=== PATIENT | male | born 1975 | race African-American/Black ===

== ENCOUNTER 2018-10-12 10:40 | Emergency (ER) | payer SELFPAY ==
[~2018-10-12] VITALS: Ht 175.3 cm; Wt 69.1 kg
[2018-10-12 11:00] VITALS: BP 120/95
[2018-10-12 15:35] LABS: BASOPHILS % (AUTO) 0.3 % (0.0-2.0); EOSINOPHILS % (AUTO) 1.4 % (1.0-6.0); HEMATOCRIT 41.6 % (41-53); HEMOGLOBIN 13.6 g/dL (13.5-17.5); LYMPHOCYTES # (AUTO) 2.1 K/uL (1.0-4.8); MEAN CORPUSCULAR HEMOGLOBIN 25.2 pg (26.0-34.0); MEAN CORPUSCULAR HGB CONC 32.6 G/dL (31.0-37.0); MEAN CORPUSCULAR VOLUME 77 fL (80-100); MONOCYTES # (AUTO) 0.5 K/uL (0.1-1.0); MONOCYTES % (AUTO) 7.7 % (2.0-9.0); NEUTROPHILS # (AUTO) 3.5 K/uL (1.8-7.7); NEUTROPHILS % (AUTO) 56.6 % (40.0-70.0); PLATELET COUNT (AUTO) 314 K/uL (150-450); RED BLOOD CELL COUNT(AUTO) 5.37 MIL/uL (4.50-5.90); RED CELL DISTRIBUTION WIDTH 14.6 % (11.5-14.5)
[2018-10-12 15:50] LABS: ANION GAP 12 mmol/L (8-16); CALCIUM, TOTAL 9.3 mg/dL (8.8-10.5); CARBON DIOXIDE 25 mmol/L (22-29); CHLORIDE 102 mmol/L (98-107); CREATININE 1.02 mg/dL (0.60-1.30); GLOMERULAR FILTR. RATE CALC > 60 mL/min (>60); GLUCOSE,RANDOM 123 mg/dL (70-110); POTASSIUM 3.6 mmol/L (3.5-5.1); SODIUM SERUM 139 mmol/L (136-145); UREA NITROGEN, BLOOD 10 mg/dL (7-18)
[2018-10-12 15:57] LABS: ALANINE AMINOTRANSFERASE 55 U/L (12-78); ALBUMIN 3.5 g/dL (3.4-5.0); ALKALINE PHOSPHATASE 97 U/L (46-116); ASPARTATE AMINOTRANSFERASE 28 U/L (15-37); BILIRUBIN,TOTAL 0.5 mg/dL (0.1-1.0); TOTAL PROTEIN, SERUM 8.2 g/dL (6.4-8.2)
== END 2018-10-12 16:16 | disposition left against medical advice (07) ==
LOC: EMS 10:42
DX: F20.9 Schizophrenia, unspecified (principal); R45.851 Suicidal ideations
CPT/HCPCS: 80053; 85025; 99284; G0480

== ENCOUNTER 2019-08-01 14:21 | Emergency (ER) | payer SELFPAY ==
[~2019-08-01] VITALS: Ht 172.7 cm; Wt 79.5 kg
[2019-08-01 14:25] VITALS: BP 126/77
[2019-08-01 16:52] LABS: BASOPHILS % (AUTO) 0.5 % (0.0-2.0); EOSINOPHILS % (AUTO) 3.8 % (1.0-6.0); HEMATOCRIT 39.3 % (41-53); HEMOGLOBIN 12.5 g/dL (13.5-17.5); LYMPHOCYTES % (AUTO) 32.3 % (22.0-44.0); MEAN CORPUSCULAR HEMOGLOBIN 25.3 pg (26.0-34.0); MEAN CORPUSCULAR HGB CONC 31.7 G/dL (31.0-37.0); MEAN CORPUSCULAR VOLUME 80 fL (80-100); MONOCYTES # (AUTO) 0.5 K/uL (0.1-1.0); MONOCYTES % (AUTO) 8.4 % (2.0-9.0); NEUTROPHILS # (AUTO) 3.3 K/uL (1.8-7.7); PLATELET COUNT (AUTO) 327 K/uL (150-450); RED BLOOD CELL COUNT(AUTO) 4.92 MIL/uL (4.50-5.90)
[2019-08-01 17:02] LABS: ANION GAP 5 mmol/L (8-16); CALCIUM, TOTAL 8.9 mg/dL (8.8-10.5); CARBON DIOXIDE 30 mmol/L (22-29); CHLORIDE 105 mmol/L (98-107); CREATININE 0.67 mg/dL (0.60-1.30); GLOMERULAR FILTR. RATE CALC > 60 mL/min (>60); GLUCOSE,RANDOM 116 mg/dL (70-110); SODIUM SERUM 140 mmol/L (136-145); UREA NITROGEN, BLOOD 9 mg/dL (7-18)
[2019-08-01 17:09] LABS: ALANINE AMINOTRANSFERASE 51 U/L (12-78); ALBUMIN 3.5 g/dL (3.4-5.0); ALKALINE PHOSPHATASE 85 U/L (46-116); ASPARTATE AMINOTRANSFERASE 50 U/L (15-37); BILIRUBIN,TOTAL 0.4 mg/dL (0.1-1.0); TOTAL PROTEIN, SERUM 7.6 g/dL (6.4-8.2)
[2019-08-01 20:28] LABS: AMPHET/METH SCREEN,URINE POSITIVE (NEGATIVE); BARBITURATE SCREEN, URINE NEGATIVE (NEGATIVE); BENZODIAZEPINES SCREEN,URINE NEGATIVE (NEGATIVE); CANNABINOID SCREEN,URINE NEGATIVE (NEGATIVE); COCAINE SCREEN,URINE NEGATIVE (NEGATIVE); METHADONE SCREEN, URINE NEGATIVE (NEGATIVE); OPIATE SCREEN,URINE NEGATIVE (NEGATIVE)
[2019-08-01 20:36] LABS: PHENCYCLIDINE SCREEN,URINE NEGATIVE (NEGATIVE)
[2019-08-01] MEDS ORDERED: HALOPERIDOL 5 MG TABLET PO ONE (21:00)
[2019-08-01] MEDS ORDERED: DiphenhydrAMINE HCL 25 MG CAPSULE PO ONE (21:00)
== END 2019-08-01 21:15 | disposition home or self-care (01) ==
LOC: EMS 14:22
DX: F20.9 Schizophrenia, unspecified (principal); F17.210 Nicotine dependence, cigarettes, uncomplicated; F12.90 Cannabis use, unspecified, uncomplicated; F19.90 Other psychoactive substance use, unspecified, uncomplicated
CPT/HCPCS: 36415; 80053; 80307; 85025; 99284; G0480

== ENCOUNTER 2019-08-13 15:37 | Emergency (ER) | payer MEDICAID ==
[~2019-08-13] VITALS: Ht 172.7 cm; Wt 70.5 kg
[2019-08-13 16:14] LABS: AMPHET/METH SCREEN,URINE NEGATIVE (NEGATIVE); BARBITURATE SCREEN, URINE NEGATIVE (NEGATIVE); BENZODIAZEPINES SCREEN,URINE NEGATIVE (NEGATIVE); CANNABINOID SCREEN,URINE POSITIVE (NEGATIVE); COCAINE SCREEN,URINE NEGATIVE (NEGATIVE); METHADONE SCREEN, URINE NEGATIVE (NEGATIVE); OPIATE SCREEN,URINE NEGATIVE (NEGATIVE)
[2019-08-13 16:16] LABS: BASOPHILS % (AUTO) 0.5 % (0.0-2.0); EOSINOPHILS % (AUTO) 3.3 % (1.0-6.0); HEMATOCRIT 41.5 % (41-53); HEMOGLOBIN 13.4 g/dL (13.5-17.5); LYMPHOCYTES % (AUTO) 29.9 % (22.0-44.0); MEAN CORPUSCULAR HEMOGLOBIN 25.8 pg (26.0-34.0); MEAN CORPUSCULAR HGB CONC 32.3 G/dL (31.0-37.0); MEAN CORPUSCULAR VOLUME 80 fL (80-100); MONOCYTES # (AUTO) 0.4 K/uL (0.1-1.0); MONOCYTES % (AUTO) 6.5 % (2.0-9.0); NEUTROPHILS % (AUTO) 59.8 % (40.0-70.0); PLATELET COUNT (AUTO) 348 K/uL (150-450); RED CELL DISTRIBUTION WIDTH 15.3 % (11.5-14.5)
[2019-08-13 16:18] LABS: PHENCYCLIDINE SCREEN,URINE NEGATIVE (NEGATIVE)
[2019-08-13 17:01] LABS: ANION GAP 9 mmol/L (8-16); CALCIUM, TOTAL 9.3 mg/dL (8.8-10.5); CARBON DIOXIDE 25 mmol/L (22-29); CHLORIDE 105 mmol/L (98-107); CREATININE 0.78 mg/dL (0.60-1.30); GLOMERULAR FILTR. RATE CALC > 60 mL/min (>60); GLUCOSE,RANDOM 117 mg/dL (70-110); POTASSIUM 3.8 mmol/L (3.5-5.1); SODIUM SERUM 139 mmol/L (136-145); UREA NITROGEN, BLOOD 16 mg/dL (7-18)
[2019-08-13 17:07] LABS: ALANINE AMINOTRANSFERASE 40 U/L (12-78); ALBUMIN 3.5 g/dL (3.4-5.0); ALKALINE PHOSPHATASE 101 U/L (46-116); ASPARTATE AMINOTRANSFERASE 18 U/L (15-37); BILIRUBIN,TOTAL 0.3 mg/dL (0.1-1.0); TOTAL PROTEIN, SERUM 7.9 g/dL (6.4-8.2)
[2019-08-13 18:31] VITALS: BP 133/85
== END 2019-08-13 19:26 | disposition home or self-care (01) ==
LOC: EMS 15:38
DX: R51 Headache (principal); F31.9 Bipolar disorder, unspecified; F20.9 Schizophrenia, unspecified; F17.210 Nicotine dependence, cigarettes, uncomplicated; F12.90 Cannabis use, unspecified, uncomplicated; F19.90 Other psychoactive substance use, unspecified, uncomplicated
CPT/HCPCS: 36415; 70450; 80053; 80307; 85025; 99284; G0480

== ENCOUNTER 2019-08-15 00:28 | Inpatient (IN) | payer MEDICAID ==
[~2019-08-15] VITALS: Ht 172.7 cm; Wt 75.5 kg
[2019-08-15 01:19] LABS: BASOPHILS % (AUTO) 0.8 % (0.0-2.0); EOSINOPHILS % (AUTO) 0.5 % (1.0-6.0); LYMPHOCYTES # (AUTO) 2.2 K/uL (1.0-4.8); LYMPHOCYTES % (AUTO) 26.3 % (22.0-44.0); MEAN CORPUSCULAR HEMOGLOBIN 25.7 pg (26.0-34.0); MEAN CORPUSCULAR HGB CONC 32.5 G/dL (31.0-37.0); MEAN CORPUSCULAR VOLUME 79 fL (80-100); MONOCYTES # (AUTO) 0.4 K/uL (0.1-1.0); MONOCYTES % (AUTO) 4.5 % (2.0-9.0); NEUTROPHILS # (AUTO) 5.7 K/uL (1.8-7.7); NEUTROPHILS % (AUTO) 67.9 % (40.0-70.0); PLATELET COUNT (AUTO) 332 K/uL (150-450); RED BLOOD CELL COUNT(AUTO) 5.05 MIL/uL (4.50-5.90); RED CELL DISTRIBUTION WIDTH 14.8 % (11.5-14.5)
[2019-08-15 01:25] LABS: AMPHET/METH SCREEN,URINE POSITIVE (NEGATIVE); BARBITURATE SCREEN, URINE NEGATIVE (NEGATIVE); BENZODIAZEPINES SCREEN,URINE NEGATIVE (NEGATIVE); CANNABINOID SCREEN,URINE NEGATIVE (NEGATIVE); COCAINE SCREEN,URINE NEGATIVE (NEGATIVE); METHADONE SCREEN, URINE NEGATIVE (NEGATIVE); OPIATE SCREEN,URINE NEGATIVE (NEGATIVE)
[2019-08-15 01:26] LABS: PHENCYCLIDINE SCREEN,URINE NEGATIVE (NEGATIVE)
[2019-08-15 01:32] LABS: ALANINE AMINOTRANSFERASE 36 U/L (12-78); ALBUMIN 3.5 g/dL (3.4-5.0); ALKALINE PHOSPHATASE 99 U/L (46-116); ANION GAP 7 mmol/L (8-16); ASPARTATE AMINOTRANSFERASE 19 U/L (15-37); BILIRUBIN,TOTAL 0.4 mg/dL (0.1-1.0); CARBON DIOXIDE 27 mmol/L (22-29); CHLORIDE 104 mmol/L (98-107); GLOMERULAR FILTR. RATE CALC > 60 mL/min (>60); GLUCOSE,RANDOM 105 mg/dL (70-110); POTASSIUM 3.7 mmol/L (3.5-5.1); SODIUM SERUM 138 mmol/L (136-145); TOTAL PROTEIN, SERUM 7.7 g/dL (6.4-8.2); UREA NITROGEN, BLOOD 15 mg/dL (7-18)
[2019-08-15] MEDS ORDERED: ZOLPIDEM TARTRATE 10 MG TABLET PO PRN (05:30)
[2019-08-15 05:46] LABS: INFLUENZA TYPE A NEGATIVE FOR TYPE A (NEGATIVE); INFLUENZA TYPE B NEGATIVE FOR TYPE B (NEGATIVE)
[2019-08-15 06:30] VITALS: BP 142/91
[2019-08-15] MEDS ORDERED: INFLUENZA VIRUS VACCINE QVS 2019-20 (3YR+)/PF 60 MCG/0.5 ML SYRINGE IM ONE (07:15)
[2019-08-15] MEDS ORDERED: PNEUMOCOCCAL VACCINE POLYVALENT 0.5 ML VIAL [PPSV23] IM ONE (07:15)
[2019-08-15 08:30] VITALS: BP 130/91
[2019-08-15] MEDS: OLANZapine 5 MG TABLET PO SCH ×2 (10:55→16:30)
[2019-08-15] MEDS: SERTRALINE HCL 50 MG TABLET PO SCH (10:56)
[2019-08-15 17:38] VITALS: BP 117/79
[2019-08-16 06:59] LABS: CHOL/HDL RATIO 3.6 (4.2-7.3)
[2019-08-16] MEDS: OLANZapine 5 MG TABLET PO SCH ×2 (08:33→16:15)
[2019-08-16] MEDS: SERTRALINE HCL 50 MG TABLET PO SCH (08:34)
[2019-08-16 08:44] VITALS: BP 123/77
[2019-08-16 17:36] VITALS: BP 125/72
[2019-08-17 03:56] VITALS: BP 120/70
[2019-08-17 08:55] VITALS: BP 113/85
[2019-08-17] MEDS: OLANZapine 5 MG TABLET PO SCH ×2 (09:18→16:27)
[2019-08-17] MEDS: SERTRALINE HCL 50 MG TABLET PO SCH (09:24)
[2019-08-17 17:50] VITALS: BP 103/66
[2019-08-18 08:00] VITALS: BP 116/76
[2019-08-18] MEDS: SERTRALINE HCL 50 MG TABLET PO SCH (09:20)
[2019-08-18] MEDS: OLANZapine 5 MG TABLET PO SCH ×2 (09:20→16:05)
[2019-08-18 19:50] VITALS: BP 117/50
[2019-08-19 01:20] VITALS: BP 115/77
[2019-08-19] MEDS: SERTRALINE HCL 50 MG TABLET PO SCH (08:44)
[2019-08-19] MEDS: OLANZapine 5 MG TABLET PO SCH ×2 (08:44→16:30)
[2019-08-19 09:27] VITALS: BP 109/74
[2019-08-19 19:30] VITALS: BP 130/74
[2019-08-20 04:29] VITALS: BP 130/78
[2019-08-20] MEDS: OLANZapine 5 MG TABLET PO SCH (08:45)
[2019-08-20] MEDS: SERTRALINE HCL 50 MG TABLET PO SCH (08:46)
[2019-08-20 09:45] VITALS: BP 122/74
[2019-08-20] MEDS ORDERED: SERTRALINE HCL 50 MG TABLET PO ONE (11:00)
[2019-08-20] MEDS: OLANZapine 7.5 MG TABLET PO SCH (16:38)
[2019-08-20 21:39] VITALS: BP 117/73
[2019-08-21] MEDS: SERTRALINE HCL 50 MG TABLET PO SCH (08:46)
[2019-08-21] MEDS: OLANZapine 7.5 MG TABLET PO SCH ×2 (08:46→16:11)
[2019-08-21 09:53] VITALS: BP 107/72
[2019-08-21 17:00] VITALS: BP 111/62
[2019-08-22] MEDS: OLANZapine 7.5 MG TABLET PO SCH ×2 (08:32→16:24)
[2019-08-22] MEDS: SERTRALINE HCL 50 MG TABLET PO SCH (08:32)
[2019-08-22 08:53] VITALS: BP 132/83
[2019-08-22 20:14] VITALS: BP 122/78
[2019-08-23] MEDS: SERTRALINE HCL 50 MG TABLET PO SCH (08:24)
[2019-08-23] MEDS: OLANZapine 7.5 MG TABLET PO SCH ×2 (08:24→16:07)
[2019-08-23] MEDS: MULTIVITAMINS WITH MINERALS, THERAPEUTIC TABLET PO SCH (08:24)
[2019-08-23 08:44] VITALS: BP 114/73
[2019-08-23 17:00] VITALS: BP 118/76
[2019-08-24] MEDS: SERTRALINE HCL 50 MG TABLET PO SCH (08:04)
[2019-08-24] MEDS: OLANZapine 7.5 MG TABLET PO SCH (08:04)
[2019-08-24] MEDS: MULTIVITAMINS WITH MINERALS, THERAPEUTIC TABLET PO SCH (08:04)
[2019-08-24 08:14] VITALS: BP 101/66
[2019-08-24] MEDS ORDERED: OLAN7.5T9 PO (08:33)
[2019-08-24] MEDS ORDERED: SERT25TA PO (08:35)
[2019-08-24] MEDS: OLANZapine 10 MG TABLET PO SCH (16:16)
[2019-08-24 16:26] VITALS: BP 117/74
[2019-08-25 08:00] VITALS: BP 132/79
[2019-08-25] MEDS: OLANZapine 10 MG TABLET PO SCH ×2 (08:31→16:20)
[2019-08-25] MEDS: MULTIVITAMINS WITH MINERALS, THERAPEUTIC TABLET PO SCH (08:31)
[2019-08-25] MEDS: SERTRALINE HCL 50 MG TABLET PO SCH (08:33)
[2019-08-25 17:35] VITALS: BP 118/71
[2019-08-26 08:45] VITALS: BP 125/68
[2019-08-26] MEDS: SERTRALINE HCL 50 MG TABLET PO SCH (08:46)
[2019-08-26] MEDS: MULTIVITAMINS WITH MINERALS, THERAPEUTIC TABLET PO SCH (08:46)
[2019-08-26] MEDS: OLANZapine 10 MG TABLET PO SCH ×2 (08:46→16:22)
[2019-08-26 17:09] VITALS: BP 121/62
[2019-08-27 08:18] VITALS: BP 126/77
[2019-08-27] MEDS: HALOPERIDOL 5 MG TABLET PO PRN ×2 (08:41→16:07)
[2019-08-27] MEDS: LORazepam 2 MG TABLET PO PRN ×2 (08:41→16:07)
[2019-08-27] MEDS: MULTIVITAMINS WITH MINERALS, THERAPEUTIC TABLET PO SCH (08:42)
[2019-08-27] MEDS: SERTRALINE HCL 50 MG TABLET PO SCH (08:42)
[2019-08-27] MEDS: OLANZapine 10 MG TABLET PO SCH ×2 (08:42→16:06)
[2019-08-27 17:31] VITALS: BP 104/85
[2019-08-28] MEDS: MULTIVITAMINS WITH MINERALS, THERAPEUTIC TABLET PO SCH (08:20)
[2019-08-28] MEDS: SERTRALINE HCL 50 MG TABLET PO SCH (08:20)
[2019-08-28] MEDS: OLANZapine 10 MG TABLET PO SCH ×2 (08:20→16:06)
[2019-08-28 08:34] VITALS: BP 105/84
[2019-08-28 16:00] VITALS: BP 130/76
[2019-08-28 16:30] VITALS: BP 130/76
[2019-08-29] MEDS: MULTIVITAMINS WITH MINERALS, THERAPEUTIC TABLET PO SCH (08:26)
[2019-08-29] MEDS: SERTRALINE HCL 50 MG TABLET PO SCH (08:26)
[2019-08-29] MEDS: OLANZapine 10 MG TABLET PO SCH ×2 (08:27→16:17)
[2019-08-29 08:53] VITALS: BP 125/87
[2019-08-29 17:14] VITALS: BP 130/77
[2019-08-30 08:19] VITALS: BP 127/67
[2019-08-30] MEDS: OLANZapine 10 MG TABLET PO SCH ×2 (09:14→16:32)
[2019-08-30] MEDS: MULTIVITAMINS WITH MINERALS, THERAPEUTIC TABLET PO SCH (09:14)
[2019-08-30] MEDS: SERTRALINE HCL 50 MG TABLET PO SCH (09:14)
[2019-08-30 16:55] VITALS: BP 133/67
[2019-08-31 08:00] VITALS: BP 132/68
[2019-08-31] MEDS: SERTRALINE HCL 50 MG TABLET PO SCH (09:03)
[2019-08-31] MEDS: MULTIVITAMINS WITH MINERALS, THERAPEUTIC TABLET PO SCH (09:03)
[2019-08-31] MEDS: OLANZapine 10 MG TABLET PO SCH ×2 (09:03→16:28)
[2019-08-31 17:25] VITALS: BP 112/66
[2019-09-01] MEDS: SERTRALINE HCL 50 MG TABLET PO SCH (08:45)
[2019-09-01] MEDS: OLANZapine 10 MG TABLET PO SCH (08:45)
[2019-09-01] MEDS: MULTIVITAMINS WITH MINERALS, THERAPEUTIC TABLET PO SCH (08:45)
[2019-09-01 09:04] VITALS: BP 128/68
[2019-09-01] MEDS ORDERED: OLAN10TA3 PO (12:15)
[2019-09-01] MEDS ORDERED: SERT50TA12 PO (12:15)
[2019-09-01] MEDS: DIVALPROEX SODIUM 500 MG DR TABLET PO SCH (16:18)
[2019-09-01] MEDS: OLANZapine 7.5 MG TABLET PO SCH (16:18)
[2019-09-01 17:12] VITALS: BP 129/73
[2019-09-02] MEDS: OLANZapine 7.5 MG TABLET PO SCH ×2 (08:51→16:23)
[2019-09-02] MEDS: MULTIVITAMINS WITH MINERALS, THERAPEUTIC TABLET PO SCH (08:51)
[2019-09-02] MEDS: SERTRALINE HCL 50 MG TABLET PO SCH (08:51)
[2019-09-02] MEDS: DIVALPROEX SODIUM 500 MG DR TABLET PO SCH ×2 (08:51→16:22)
[2019-09-02 10:04] VITALS: BP 118/63
[2019-09-02 17:00] VITALS: BP 116/66
[2019-09-03 08:53] VITALS: BP 120/66
[2019-09-03] MEDS: SERTRALINE HCL 50 MG TABLET PO SCH (08:59)
[2019-09-03] MEDS: DIVALPROEX SODIUM 500 MG DR TABLET PO SCH ×2 (08:59→15:57)
[2019-09-03] MEDS: MULTIVITAMINS WITH MINERALS, THERAPEUTIC TABLET PO SCH (08:59)
[2019-09-03] MEDS: OLANZapine 7.5 MG TABLET PO SCH ×2 (08:59→15:57)
[2019-09-03 16:49] VITALS: BP 120/71
[2019-09-04 08:53] VITALS: BP 120/75
[2019-09-04] MEDS: DIVALPROEX SODIUM 500 MG DR TABLET PO SCH ×2 (10:45→17:09)
[2019-09-04] MEDS: SERTRALINE HCL 50 MG TABLET PO SCH (10:45)
[2019-09-04] MEDS: OLANZapine 7.5 MG TABLET PO SCH ×2 (10:46→17:10)
[2019-09-04] MEDS: MULTIVITAMINS WITH MINERALS, THERAPEUTIC TABLET PO SCH (10:46)
[2019-09-04 17:07] VITALS: BP 130/71
[2019-09-04] MEDS ORDERED: DIVA-78 PO (17:50)
[2019-09-04] MEDS ORDERED: OLAN7.5T2 PO (17:50)
== END 2019-09-04 18:45 | disposition left against medical advice (07) | DRG 750 ==
LOC: EMS 00:30 → 3EI 05:00
PROVIDERS: ADMIT Psychiatry & Neurology Child & Adolescent Psychiatry; ATTEND Psychiatry & Neurology Child & Adolescent Psychiatry
DX: F25.1 Schizoaffective disorder, depressive type (principal); Z59.0 Homelessness; D64.9 Anemia, unspecified; F10.10 Alcohol abuse, uncomplicated; F15.10 Other stimulant abuse, uncomplicated; F17.210 Nicotine dependence, cigarettes, uncomplicated; K21.9 Gastro-esophageal reflux disease without esophagitis; Z53.29 Procedure and treatment not carried out because of patient's decision for other reasons; R00.0 Tachycardia, unspecified; R09.81 Nasal congestion; R10.13 Epigastric pain; Z28.21 Immunization not carried out because of patient refusal; Z71.41 Alcohol abuse counseling and surveillance of alcoholic; Z71.51 Drug abuse counseling and surveillance of drug abuser
CPT/HCPCS: 87804; G0480

== ENCOUNTER 2019-09-29 17:18 | Emergency (ER) | payer MEDICAID, OTHER ==
[~2019-09-29] VITALS: Ht 172.7 cm; Wt 77.3 kg
[~2019-09-29 17:18] MED LIST: DIVA-78 PO; OLAN7.5T2 PO; SERT50TA12 PO
[2019-09-29 17:24] VITALS: BP 142/81
== END 2019-09-29 19:30 | disposition left against medical advice (07) ==
LOC: EMS 17:19
DX: R53.83 Other fatigue (principal); Z53.21 Procedure and treatment not carried out due to patient leaving prior to being seen by health care provider

== ENCOUNTER 2019-10-02 09:11 | Inpatient (IN) | payer MEDICAID, OTHER ==
[~2019-10-02] VITALS: Ht 172.7 cm; Wt 76.9 kg
[2019-10-02 13:10] LABS: BASOPHILS % (AUTO) 0.7 % (0.0-2.0); EOSINOPHILS % (AUTO) 6.8 % (1.0-6.0); HEMATOCRIT 39.9 % (41-53); HEMOGLOBIN 12.8 g/dL (13.5-17.5); LYMPHOCYTES # (AUTO) 2.4 K/uL (1.0-4.8); LYMPHOCYTES % (AUTO) 53.5 % (22.0-44.0); MEAN CORPUSCULAR HEMOGLOBIN 25.4 pg (26.0-34.0); MEAN CORPUSCULAR HGB CONC 32.2 G/dL (31.0-37.0); MEAN CORPUSCULAR VOLUME 79 fL (80-100); MONOCYTES # (AUTO) 0.4 K/uL (0.1-1.0); NEUTROPHILS # (AUTO) 1.3 K/uL (1.8-7.7); PLATELET COUNT (AUTO) 271 K/uL (150-450); RED BLOOD CELL COUNT(AUTO) 5.05 MIL/uL (4.50-5.90); RED CELL DISTRIBUTION WIDTH 14.4 % (11.5-14.5)
[2019-10-02 13:21] LABS: ANION GAP 6 mmol/L (8-16); CALCIUM, TOTAL 9.1 mg/dL (8.8-10.5); CARBON DIOXIDE 28 mmol/L (22-29); CHLORIDE 105 mmol/L (98-107); CREATININE 0.71 mg/dL (0.60-1.30); GLOMERULAR FILTR. RATE CALC > 60 mL/min (>60); GLUCOSE,RANDOM 77 mg/dL (70-110); POTASSIUM 3.6 mmol/L (3.5-5.1); SODIUM SERUM 139 mmol/L (136-145); UREA NITROGEN, BLOOD 7 mg/dL (7-18)
[2019-10-02 13:26] LABS: ALANINE AMINOTRANSFERASE 39 U/L (12-78); ALBUMIN 3.4 g/dL (3.4-5.0); ALKALINE PHOSPHATASE 96 U/L (46-116); ASPARTATE AMINOTRANSFERASE 21 U/L (15-37); BILIRUBIN,TOTAL 0.3 mg/dL (0.1-1.0); LIPASE 628 U/L (73-393); TOTAL PROTEIN, SERUM 7.7 g/dL (6.4-8.2)
[2019-10-02 13:34] LABS: APPEARANCE,URINE CLEAR (CLEAR); BILIRUBIN,URINE NEGATIVE (NEGATIVE); GLUCOSE, URINE (UA) NEGATIVE (NEGATIVE); KETONES,URINE NEGATIVE (NEGATIVE); LEUKOCYTE ESTERASE ,URINE NEGATIVE (NEGATIVE); NITRATE,URINE NEGATIVE (NEGATIVE); OCCULT BLOOD,URINE NEGATIVE (NEGATIVE); PH,URINE 6.5 (5.0-8.0); PROTEIN,URINE NEGATIVE (NEGATIVE); UROBILINOGEN,URINE 0.2 mg/dL (<=1.0)
[2019-10-02 13:39] LABS: AMPHET/METH SCREEN,URINE NEGATIVE (NEGATIVE); BARBITURATE SCREEN, URINE NEGATIVE (NEGATIVE); BENZODIAZEPINES SCREEN,URINE NEGATIVE (NEGATIVE); CANNABINOID SCREEN,URINE NEGATIVE (NEGATIVE); COCAINE SCREEN,URINE NEGATIVE (NEGATIVE); METHADONE SCREEN, URINE NEGATIVE (NEGATIVE); OPIATE SCREEN,URINE NEGATIVE (NEGATIVE); PHENCYCLIDINE SCREEN,URINE NEGATIVE (NEGATIVE)
[2019-10-02] MEDS ORDERED: LORazepam 2 MG TABLET PO PRN (16:15)
[2019-10-02] MEDS ORDERED: ZOLPIDEM TARTRATE 10 MG TABLET PO PRN (16:15)
[2019-10-02] MEDS ORDERED: MAGNESIUM HYDROXIDE SUSPENSION 30 ML UDCUP PO PRN (18:45)
[2019-10-02] MEDS ORDERED: ONDANSETRON HCL 4 MG TABLET PO PRN (18:45)
[2019-10-02] MEDS ORDERED: LOPERAMIDE HCL 2 MG CAPSULE PO PRN (18:45)
[2019-10-02] MEDS ORDERED: ACETAMINOPHEN 325 MG TABLET PO PRN (18:45)
[2019-10-02] MEDS ORDERED: GuaiFENesin/D-METHORPHAN [SUGAR-FREE] 200-20MG/10 ML SYRUP UDCUP PO PRN (18:45)
[2019-10-02] MEDS ORDERED: CloNIDine HCL 0.1 MG TABLET PO PRN (18:45)
[2019-10-02] MEDS ORDERED: NICOTINE 14 MG/24 HOUR PATCH TD PRN (18:45)
[2019-10-02] MEDS ORDERED: IBUPROFEN 400 MG TABLET PO PRN (18:45)
[2019-10-02] MEDS ORDERED: DOCUSATE SODIUM 100 MG CAPSULE PO PRN (18:45)
[2019-10-02] MEDS ORDERED: ALBUTEROL SULFATE HFA 90 MCG/PUFF 8 GM INHALER IH PRN (18:45)
[2019-10-02] MEDS ORDERED: MAG HYDROX/AL HYDROX/SIMETH ES 30 ML SUSPENSION UDCUP PO PRN (18:45)
[2019-10-02] MEDS ORDERED: PETROLATUM,WHITE 28 GM JELLY TP PRN (18:45)
[2019-10-02] MEDS ORDERED: INFLUENZA VIRUS VACCINE QVS 2019-20 (3YR+)/PF 60 MCG/0.5 ML SYRINGE IM ONE (20:45)
[2019-10-02] MEDS ORDERED: PNEUMOCOCCAL VACCINE POLYVALENT 0.5 ML VIAL [PPSV23] IM ONE (22:00)
[2019-10-02 22:15] VITALS: BP 145/83
[2019-10-03 07:09] VITALS: BP 118/74
[2019-10-03 08:18] VITALS: BP 130/72
[2019-10-03] MEDS: SERTRALINE HCL 100 MG TABLET PO SCH (12:28)
[2019-10-03] MEDS: DIVALPROEX SODIUM 500 MG ER TABLET PO SCH (16:22)
[2019-10-03 17:01] VITALS: BP 114/85
[2019-10-03] MEDS: HALOPERIDOL 5 MG TABLET PO PRN (17:55)
[2019-10-03] MEDS: OLANZapine 10 MG TABLET PO SCH (20:13)
[2019-10-04 00:06] VITALS: BP 129/62
[2019-10-04] MEDS: DIVALPROEX SODIUM 500 MG ER TABLET PO SCH ×2 (08:25→18:26)
[2019-10-04] MEDS: SERTRALINE HCL 100 MG TABLET PO SCH (08:25)
[2019-10-04] MEDS: MULTIVITAMINS WITH MINERALS, THERAPEUTIC TABLET PO SCH (09:07)
[2019-10-04 16:10] VITALS: BP 132/77
[2019-10-04] MEDS: OLANZapine 10 MG TABLET PO SCH (20:35)
[2019-10-05 05:59] VITALS: BP 126/72
[2019-10-05 08:31] VITALS: BP 117/69
[2019-10-05] MEDS: DIVALPROEX SODIUM 500 MG ER TABLET PO SCH ×2 (08:43→16:53)
[2019-10-05] MEDS: MULTIVITAMINS WITH MINERALS, THERAPEUTIC TABLET PO SCH (08:43)
[2019-10-05] MEDS: SERTRALINE HCL 100 MG TABLET PO SCH (08:43)
[2019-10-05 16:13] VITALS: BP 131/76
[2019-10-05] MEDS: OLANZapine 10 MG TABLET PO SCH (20:40)
[2019-10-06 00:09] VITALS: BP 129/62
[2019-10-06 08:27] VITALS: BP 124/80
[2019-10-06] MEDS: SERTRALINE HCL 100 MG TABLET PO SCH (08:41)
[2019-10-06] MEDS: MULTIVITAMINS WITH MINERALS, THERAPEUTIC TABLET PO SCH (08:41)
[2019-10-06] MEDS: DIVALPROEX SODIUM 500 MG ER TABLET PO SCH (08:41)
[2019-10-06 16:12] VITALS: BP 123/82
[2019-10-06] MEDS: DIVALPROEX SODIUM 250 MG ER TABLET PO SCH (16:41)
[2019-10-06] MEDS: OLANZapine 10 MG TABLET PO SCH (20:34)
[2019-10-07 06:18] VITALS: BP 124/63
[2019-10-07 08:17] VITALS: BP 132/78
[2019-10-07] MEDS: DIVALPROEX SODIUM 250 MG ER TABLET PO SCH ×2 (08:19→16:31)
[2019-10-07] MEDS: SERTRALINE HCL 100 MG TABLET PO SCH (08:19)
[2019-10-07] MEDS: MULTIVITAMINS WITH MINERALS, THERAPEUTIC TABLET PO SCH (08:19)
[2019-10-07 16:00] VITALS: BP 134/80
[2019-10-07] MEDS: OLANZapine 10 MG TABLET PO SCH (20:03)
[2019-10-08 09:28] VITALS: BP 130/62
[2019-10-08] MEDS: SERTRALINE HCL 100 MG TABLET PO SCH (09:37)
[2019-10-08] MEDS: MULTIVITAMINS WITH MINERALS, THERAPEUTIC TABLET PO SCH (09:37)
[2019-10-08] MEDS: DIVALPROEX SODIUM 250 MG ER TABLET PO SCH ×2 (09:39→16:09)
[2019-10-08 16:20] VITALS: BP 128/80
[2019-10-08] MEDS: OLANZapine 10 MG TABLET PO SCH (20:30)
[2019-10-09 00:50] VITALS: BP 118/69
[2019-10-09 07:31] LABS: BASOPHILS % (AUTO) 0.4 % (0.0-2.0); EOSINOPHILS % (AUTO) 7.1 % (1.0-6.0); HEMATOCRIT 39.4 % (41-53); LYMPHOCYTES # (AUTO) 1.2 K/uL (1.0-4.8); LYMPHOCYTES % (AUTO) 31.9 % (22.0-44.0); MEAN CORPUSCULAR HEMOGLOBIN 25.8 pg (26.0-34.0); MEAN CORPUSCULAR VOLUME 78 fL (80-100); MONOCYTES # (AUTO) 0.8 K/uL (0.1-1.0); MONOCYTES % (AUTO) 23.2 % (2.0-9.0); NEUTROPHILS # (AUTO) 1.4 K/uL (1.8-7.7); NEUTROPHILS % (AUTO) 37.4 % (40.0-70.0); PLATELET COUNT (AUTO) 256 K/uL (150-450); RED BLOOD CELL COUNT(AUTO) 5.04 MIL/uL (4.50-5.90); RED CELL DISTRIBUTION WIDTH 14.5 % (11.5-14.5)
[2019-10-09 08:16] VITALS: BP 108/69
[2019-10-09] MEDS: DIVALPROEX SODIUM 250 MG ER TABLET PO SCH ×2 (08:19→17:10)
[2019-10-09] MEDS: MULTIVITAMINS WITH MINERALS, THERAPEUTIC TABLET PO SCH (08:19)
[2019-10-09] MEDS: SERTRALINE HCL 100 MG TABLET PO SCH (08:19)
[2019-10-09 16:04] VITALS: BP 131/65
[2019-10-09] MEDS: OLANZapine 10 MG TABLET PO SCH (20:20)
[2019-10-10 00:27] VITALS: BP 122/73
[2019-10-10 08:09] VITALS: BP 137/71
[2019-10-10] MEDS: MULTIVITAMINS WITH MINERALS, THERAPEUTIC TABLET PO SCH (08:39)
[2019-10-10] MEDS: DIVALPROEX SODIUM 250 MG ER TABLET PO SCH ×2 (08:39→17:11)
[2019-10-10] MEDS: SERTRALINE HCL 100 MG TABLET PO SCH (08:39)
[2019-10-10 16:29] VITALS: BP 133/97
[2019-10-10] MEDS: OLANZapine 10 MG TABLET PO SCH (20:40)
[2019-10-11 06:54] VITALS: BP 119/71
[2019-10-11] MEDS: MULTIVITAMINS WITH MINERALS, THERAPEUTIC TABLET PO SCH (08:15)
[2019-10-11] MEDS: SERTRALINE HCL 100 MG TABLET PO SCH (08:15)
[2019-10-11] MEDS: DIVALPROEX SODIUM 250 MG ER TABLET PO SCH ×2 (08:15→16:43)
[2019-10-11 08:20] VITALS: BP 132/72
[2019-10-11 16:27] VITALS: BP 120/80
[2019-10-11] MEDS: OLANZapine 10 MG TABLET PO SCH (21:18)
[2019-10-12 00:44] VITALS: BP 112/70
[2019-10-12 08:24] VITALS: BP 115/73
[2019-10-12] MEDS: SERTRALINE HCL 100 MG TABLET PO SCH (08:58)
[2019-10-12] MEDS: MULTIVITAMINS WITH MINERALS, THERAPEUTIC TABLET PO SCH (08:58)
[2019-10-12] MEDS: DIVALPROEX SODIUM 250 MG ER TABLET PO SCH ×2 (08:59→17:55)
[2019-10-12 16:06] VITALS: BP 119/70
[2019-10-12] MEDS: OLANZapine 10 MG TABLET PO SCH (20:12)
[2019-10-13 08:15] VITALS: BP 107/64
[2019-10-13] MEDS: DIVALPROEX SODIUM 250 MG ER TABLET PO SCH ×2 (09:01→17:01)
[2019-10-13] MEDS: MULTIVITAMINS WITH MINERALS, THERAPEUTIC TABLET PO SCH (09:02)
[2019-10-13] MEDS: SERTRALINE HCL 100 MG TABLET PO SCH (09:02)
[2019-10-13 16:06] VITALS: BP 140/86
[2019-10-13] MEDS: HALOPERIDOL 5 MG TABLET PO PRN (17:02)
[2019-10-13] MEDS: OLANZapine 10 MG TABLET PO SCH (20:31)
[2019-10-14] MEDS ORDERED: DIVA250T45 PO (02:32)
[2019-10-14] MEDS ORDERED: OLAN10TA3 PO (02:33)
[2019-10-14] MEDS ORDERED: SERT100T12 PO (02:34)
[2019-10-14 05:43] VITALS: BP 121/76
[2019-10-14 08:27] VITALS: BP 124/68
[2019-10-14] MEDS: MULTIVITAMINS WITH MINERALS, THERAPEUTIC TABLET PO SCH (08:40)
[2019-10-14] MEDS: SERTRALINE HCL 100 MG TABLET PO SCH (08:40)
[2019-10-14] MEDS: DIVALPROEX SODIUM 250 MG ER TABLET PO SCH (08:41)
== END 2019-10-14 15:15 | disposition home or self-care (01) | DRG 750 ==
LOC: EMS 09:11 → B2S 20:22
PROVIDERS: ADMIT Psychiatry & Neurology Psychiatry; ATTEND Psychiatry & Neurology Psychiatry
PROC: 3E0234Z Introduction of Serum, Toxoid and Vaccine into Muscle, Percutaneous Approach (ICD-10-PCS; principal; 2019-10-03)
PROC: 3E02340 Introduction of Influenza Vaccine into Muscle, Percutaneous Approach (ICD-10-PCS; 2019-10-03)
DX: F25.0 Schizoaffective disorder, bipolar type (principal); R45.851 Suicidal ideations; E11.9 Type 2 diabetes mellitus without complications; D64.9 Anemia, unspecified; D72.819 Decreased white blood cell count, unspecified; F10.10 Alcohol abuse, uncomplicated; F15.90 Other stimulant use, unspecified, uncomplicated; F41.9 Anxiety disorder, unspecified; R45.84 Anhedonia; R45.87 Impulsiveness; I10 Essential (primary) hypertension; Z59.0 Homelessness; Z79.899 Other long term (current) drug therapy; Z87.891 Personal history of nicotine dependence; Z91.19 Patient's noncompliance with other medical treatment and regimen; Z23 Encounter for immunization
CPT/HCPCS: 90686; 90732; 93005; G0480

== ENCOUNTER 2019-10-31 08:24 | Inpatient (IN) | payer MEDICAID, OTHER ==
[~2019-10-31] VITALS: Ht 172.7 cm; Wt 73.6 kg
[~2019-10-31 08:24] MED LIST changes: -DIVA-78 PO; +DIVA250T45 PO; +OLAN10TA3 PO; -OLAN7.5T2 PO; +SERT100T12 PO; -SERT50TA12 PO
[2019-10-31 09:38] LABS: BASOPHILS % (AUTO) 0.7 % (0.0-2.0); EOSINOPHILS % (AUTO) 1.7 % (1.0-6.0); HEMATOCRIT 37.8 % (41-53); HEMOGLOBIN 12.2 g/dL (13.5-17.5); LYMPHOCYTES # (AUTO) 1.9 K/uL (1.0-4.8); LYMPHOCYTES % (AUTO) 38.9 % (22.0-44.0); MEAN CORPUSCULAR HGB CONC 32.2 G/dL (31.0-37.0); MEAN CORPUSCULAR VOLUME 78 fL (80-100); MONOCYTES # (AUTO) 0.6 K/uL (0.1-1.0); MONOCYTES % (AUTO) 12.4 % (2.0-9.0); NEUTROPHILS # (AUTO) 2.3 K/uL (1.8-7.7); NEUTROPHILS % (AUTO) 46.3 % (40.0-70.0); PLATELET COUNT (AUTO) 246 K/uL (150-450); RED BLOOD CELL COUNT(AUTO) 4.88 MIL/uL (4.50-5.90); RED CELL DISTRIBUTION WIDTH 14.1 % (11.5-14.5)
[2019-10-31 10:04] LABS: ALANINE AMINOTRANSFERASE 40 U/L (12-78); ALBUMIN 3.3 g/dL (3.4-5.0); ALKALINE PHOSPHATASE 86 U/L (46-116); ANION GAP 10 mmol/L (8-16); ASPARTATE AMINOTRANSFERASE 23 U/L (15-37); BILIRUBIN,TOTAL 0.7 mg/dL (0.1-1.0); CALCIUM, TOTAL 9.2 mg/dL (8.8-10.5); CARBON DIOXIDE 24 mmol/L (22-29); CHLORIDE 107 mmol/L (98-107); CREATININE 0.73 mg/dL (0.60-1.30); GLOMERULAR FILTR. RATE CALC > 60 mL/min (>60); GLUCOSE,RANDOM 83 mg/dL (70-110); POTASSIUM 4.3 mmol/L (3.5-5.1); SODIUM SERUM 141 mmol/L (136-145); TOTAL PROTEIN, SERUM 7.1 g/dL (6.4-8.2); UREA NITROGEN, BLOOD 16 mg/dL (7-18)
[2019-10-31 10:10] LABS: AMPHET/METH SCREEN,URINE NEGATIVE (NEGATIVE); BARBITURATE SCREEN, URINE NEGATIVE (NEGATIVE); BENZODIAZEPINES SCREEN,URINE NEGATIVE (NEGATIVE); CANNABINOID SCREEN,URINE NEGATIVE (NEGATIVE); COCAINE SCREEN,URINE NEGATIVE (NEGATIVE); METHADONE SCREEN, URINE NEGATIVE (NEGATIVE); OPIATE SCREEN,URINE NEGATIVE (NEGATIVE)
[2019-10-31 10:11] LABS: PHENCYCLIDINE SCREEN,URINE NEGATIVE (NEGATIVE)
[2019-10-31] MEDS ORDERED: ZOLPIDEM TARTRATE 10 MG TABLET PO PRN (11:45)
[2019-10-31] MEDS ORDERED: LORazepam 2 MG TABLET PO PRN (11:45)
[2019-10-31] MEDS ORDERED: HALOPERIDOL 5 MG TABLET PO PRN (11:45)
[2019-10-31 14:25] VITALS: BP 134/69
[2019-10-31] MEDS ORDERED: NICOTINE 14 MG/24 HOUR PATCH TD ONE (15:30)
[2019-10-31] MEDS ORDERED: -PHARMACY VACCINE NOTE- MISC ONE (15:45)
[2019-10-31 19:45] VITALS: BP 123/67
[2019-10-31] MEDS ORDERED: ONDANSETRON HCL 4 MG TABLET PO PRN (20:15)
[2019-10-31] MEDS ORDERED: DOCUSATE SODIUM 100 MG CAPSULE PO PRN (20:15)
[2019-10-31] MEDS ORDERED: CloNIDine HCL 0.1 MG TABLET PO PRN (20:15)
[2019-10-31] MEDS ORDERED: PETROLATUM,WHITE 28 GM JELLY TP PRN (20:15)
[2019-10-31] MEDS ORDERED: LOPERAMIDE HCL 2 MG CAPSULE PO PRN (20:15)
[2019-10-31] MEDS ORDERED: NICOTINE 14 MG/24 HOUR PATCH TD PRN (20:15)
[2019-10-31] MEDS ORDERED: GuaiFENesin/D-METHORPHAN [SUGAR-FREE] 200-20MG/10 ML SYRUP UDCUP PO PRN (20:15)
[2019-10-31] MEDS ORDERED: MAG HYDROX/AL HYDROX/SIMETH ES 30 ML SUSPENSION UDCUP PO PRN (20:15)
[2019-10-31] MEDS ORDERED: ACETAMINOPHEN 325 MG TABLET PO PRN (20:15)
[2019-10-31] MEDS ORDERED: MAGNESIUM HYDROXIDE SUSPENSION 30 ML UDCUP PO PRN (20:15)
[2019-10-31] MEDS ORDERED: IBUPROFEN 400 MG TABLET PO PRN (20:15)
[2019-10-31] MEDS ORDERED: ALBUTEROL SULFATE HFA 90 MCG/PUFF 8 GM INHALER IH PRN (20:15)
[2019-11-01 02:43] VITALS: BP 117/85
[2019-11-01 08:23] LABS: CHOL/HDL RATIO 3.7 (4.2-7.3); CHOLESTEROL 111 mg/dL (131-200); FREE T4 (FREE THYROXINE) 4.12 ng/dL (0.76-1.46); HDL CHOLESTEROL 30 mg/dL (40-60); LDL CHOL (CALC.) 69 mg/dL (0-130); TRIGLYCERIDES 62 mg/dL (15-150)
[2019-11-01 08:25] LABS: THYROID STIMULATING HORMONE < 0.01 uIU/mL (0.36-3.74)
[2019-11-01 08:52] VITALS: BP 105/55
[2019-11-01 16:56] VITALS: BP 115/68
[2019-11-01] MEDS: DIVALPROEX SODIUM 250 MG ER TABLET PO SCH (17:26)
[2019-11-01] MEDS: METHIMAZOLE 5 MG TABLET PO SCH (17:26)
[2019-11-01] MEDS: SERTRALINE HCL 100 MG TABLET PO SCH (20:13)
[2019-11-01] MEDS: OLANZapine 10 MG TABLET PO SCH (20:13)
[2019-11-02 08:21] VITALS: BP 143/98
[2019-11-02] MEDS: METHIMAZOLE 5 MG TABLET PO SCH ×2 (09:19→16:15)
[2019-11-02] MEDS: DIVALPROEX SODIUM 250 MG ER TABLET PO SCH ×2 (09:19→16:15)
[2019-11-02] MEDS: SERTRALINE HCL 100 MG TABLET PO SCH (20:43)
[2019-11-02] MEDS: OLANZapine 10 MG TABLET PO SCH (20:43)
[2019-11-03] MEDS: DIVALPROEX SODIUM 250 MG ER TABLET PO SCH ×2 (08:23→16:31)
[2019-11-03] MEDS: METHIMAZOLE 5 MG TABLET PO SCH ×2 (08:23→16:31)
[2019-11-03 11:38] VITALS: BP 116/73
[2019-11-03 16:26] VITALS: BP 116/83
[2019-11-03] MEDS: SERTRALINE HCL 100 MG TABLET PO SCH (20:15)
[2019-11-03] MEDS: OLANZapine 10 MG TABLET PO SCH (20:15)
[2019-11-04] MEDS: DIVALPROEX SODIUM 250 MG ER TABLET PO SCH (08:54)
[2019-11-04] MEDS: METHIMAZOLE 5 MG TABLET PO SCH (08:55)
[2019-11-04] MEDS ORDERED: PROPRANOLOL HCL 10 MG TABLET PO SCH (09:00)
[2019-11-04] MEDS ORDERED: OLAN10TA3 PO (09:28)
[2019-11-04] MEDS ORDERED: DIVA250T45 PO (09:28)
[2019-11-04] MEDS ORDERED: SERT100T12 PO (09:29)
[2019-11-04] MEDS ORDERED: METH10TA PO (09:33)
[2019-11-04] MEDS ORDERED: PROP10TA73 PO (09:34)
[2019-11-04 11:17] VITALS: BP 117/81
== END 2019-11-04 13:00 | disposition home or self-care (01) | DRG 885 ==
LOC: EMS 08:26 → 3EI 13:35 → UNDOADMIN 13:47 → 3EI 13:47
PROVIDERS: ADMIT Psychiatry & Neurology Psychiatry; ATTEND Psychiatry & Neurology Psychiatry
DX: F25.1 Schizoaffective disorder, depressive type (principal); R45.851 Suicidal ideations; D64.9 Anemia, unspecified; E05.90 Thyrotoxicosis, unspecified without thyrotoxic crisis or storm; E11.9 Type 2 diabetes mellitus without complications; F10.10 Alcohol abuse, uncomplicated; Z71.41 Alcohol abuse counseling and surveillance of alcoholic; F12.90 Cannabis use, unspecified, uncomplicated; F15.90 Other stimulant use, unspecified, uncomplicated; F41.9 Anxiety disorder, unspecified; I10 Essential (primary) hypertension; R45.850 Homicidal ideations; Z59.0 Homelessness; Z79.899 Other long term (current) drug therapy; Z87.891 Personal history of nicotine dependence; Z91.14 Patient's other noncompliance with medication regimen
CPT/HCPCS: 84439; 84443; 87081; G0480

== ENCOUNTER 2019-11-07 07:02 | Emergency (ER) | payer MEDICAID, OTHER ==
[~2019-11-07] VITALS: Ht 172.7 cm; Wt 72.7 kg
[~2019-11-07 07:02] MED LIST changes: +METH10TA PO; +PROP10TA73 PO
[2019-11-07 08:04] LABS: BASOPHILS % (AUTO) 0.4 % (0.0-2.0); EOSINOPHILS % (AUTO) 6.6 % (1.0-6.0); HEMOGLOBIN 11.8 g/dL (13.5-17.5); LYMPHOCYTES # (AUTO) 2.2 K/uL (1.0-4.8); LYMPHOCYTES % (AUTO) 43.3 % (22.0-44.0); MEAN CORPUSCULAR HEMOGLOBIN 24.8 pg (26.0-34.0); MEAN CORPUSCULAR VOLUME 77 fL (80-100); MONOCYTES # (AUTO) 0.5 K/uL (0.1-1.0); MONOCYTES % (AUTO) 10.4 % (2.0-9.0); NEUTROPHILS % (AUTO) 39.3 % (40.0-70.0); PLATELET COUNT (AUTO) 218 K/uL (150-450); RED BLOOD CELL COUNT(AUTO) 4.78 MIL/uL (4.50-5.90); RED CELL DISTRIBUTION WIDTH 14.2 % (11.5-14.5)
[2019-11-07 08:13] LABS: ANION GAP 7 mmol/L (8-16); CARBON DIOXIDE 26 mmol/L (22-29); CHLORIDE 110 mmol/L (98-107); CREATININE 0.77 mg/dL (0.60-1.30); GLOMERULAR FILTR. RATE CALC > 60 mL/min (>60); GLUCOSE,RANDOM 74 mg/dL (70-110); POTASSIUM 4.3 mmol/L (3.5-5.1); SODIUM SERUM 143 mmol/L (136-145); UREA NITROGEN, BLOOD 18 mg/dL (7-18)
[2019-11-07 08:19] LABS: ALANINE AMINOTRANSFERASE 45 U/L (12-78); ALBUMIN 3.2 g/dL (3.4-5.0); ALKALINE PHOSPHATASE 94 U/L (46-116); ASPARTATE AMINOTRANSFERASE 24 U/L (15-37); BILIRUBIN,TOTAL 0.6 mg/dL (0.1-1.0); TOTAL PROTEIN, SERUM 6.9 g/dL (6.4-8.2)
[2019-11-07 09:13] LABS: AMPHET/METH SCREEN,URINE NEGATIVE (NEGATIVE); BARBITURATE SCREEN, URINE NEGATIVE (NEGATIVE); BENZODIAZEPINES SCREEN,URINE NEGATIVE (NEGATIVE); CANNABINOID SCREEN,URINE POSITIVE (NEGATIVE); COCAINE SCREEN,URINE NEGATIVE (NEGATIVE); METHADONE SCREEN, URINE NEGATIVE (NEGATIVE); OPIATE SCREEN,URINE NEGATIVE (NEGATIVE)
[2019-11-07 09:16] LABS: PHENCYCLIDINE SCREEN,URINE NEGATIVE (NEGATIVE)
[2019-11-07 12:51] VITALS: BP 131/83
== END 2019-11-07 13:15 | disposition home or self-care (01) ==
LOC: EMS 07:02
DX: F20.9 Schizophrenia, unspecified (principal); F31.9 Bipolar disorder, unspecified; F17.210 Nicotine dependence, cigarettes, uncomplicated; F15.90 Other stimulant use, unspecified, uncomplicated; Z79.899 Other long term (current) drug therapy; Z98.890 Other specified postprocedural states
CPT/HCPCS: 36415; 80053; 80307; 85025; 99284; G0480

== ENCOUNTER 2019-11-12 10:04 | Inpatient (IN) | payer MEDICAID, OTHER ==
[~2019-11-12] VITALS: Ht 180.3 cm; Wt 72.7 kg
[2019-11-12 11:26] LABS: BASOPHILS % (AUTO) 0.3 % (0.0-2.0); EOSINOPHILS % (AUTO) 0 % (1.0-6.0); HEMATOCRIT 39.9 % (41-53); HEMOGLOBIN 12.8 g/dL (13.5-17.5); LYMPHOCYTES # (AUTO) 0.9 K/uL (1.0-4.8); LYMPHOCYTES % (AUTO) 7.8 % (22.0-44.0); MEAN CORPUSCULAR HEMOGLOBIN 24.9 pg (26.0-34.0); MEAN CORPUSCULAR HGB CONC 31.9 G/dL (31.0-37.0); MEAN CORPUSCULAR VOLUME 78 fL (80-100); MONOCYTES # (AUTO) 0.6 K/uL (0.1-1.0); MONOCYTES % (AUTO) 4.8 % (2.0-9.0); NEUTROPHILS # (AUTO) 10.4 K/uL (1.8-7.7); NEUTROPHILS % (AUTO) 87.1 % (40.0-70.0); PLATELET COUNT (AUTO) 261 K/uL (150-450); RED BLOOD CELL COUNT(AUTO) 5.13 MIL/uL (4.50-5.90); RED CELL DISTRIBUTION WIDTH 14.5 % (11.5-14.5)
[2019-11-12] MEDS ORDERED: HALOPERIDOL LACTATE 5 MG/ML VIAL IM ONE (11:30)
[2019-11-12] MEDS ORDERED: METH5TAB7 PO (11:30)
[2019-11-12] MEDS ORDERED: LORazepam 2 MG/ML VIAL IM ONE (11:30)
[2019-11-12 11:38] LABS: ANION GAP 17 mmol/L (8-16); CARBON DIOXIDE 19 mmol/L (22-29); CHLORIDE 103 mmol/L (98-107); CREATININE 1.62 mg/dL (0.60-1.30); GLOMERULAR FILTR. RATE CALC 56 mL/min (>60); GLUCOSE,RANDOM 83 mg/dL (70-110); POTASSIUM 4.1 mmol/L (3.5-5.1); SODIUM SERUM 139 mmol/L (136-145); UREA NITROGEN, BLOOD 22 mg/dL (7-18)
[2019-11-12 11:44] LABS: ALANINE AMINOTRANSFERASE 47 U/L (12-78); ALBUMIN 3.8 g/dL (3.4-5.0); ALKALINE PHOSPHATASE 104 U/L (46-116); ASPARTATE AMINOTRANSFERASE 42 U/L (15-37); BILIRUBIN,TOTAL 1.1 mg/dL (0.1-1.0); TOTAL PROTEIN, SERUM 7.9 g/dL (6.4-8.2)
[2019-11-12 11:49] LABS: AMPHET/METH SCREEN,URINE POSITIVE (NEGATIVE); BARBITURATE SCREEN, URINE NEGATIVE (NEGATIVE); BENZODIAZEPINES SCREEN,URINE NEGATIVE (NEGATIVE); CANNABINOID SCREEN,URINE NEGATIVE (NEGATIVE); COCAINE SCREEN,URINE NEGATIVE (NEGATIVE); METHADONE SCREEN, URINE NEGATIVE (NEGATIVE); OPIATE SCREEN,URINE NEGATIVE (NEGATIVE)
[2019-11-12 11:51] LABS: PHENCYCLIDINE SCREEN,URINE NEGATIVE (NEGATIVE)
[2019-11-12 11:56] LABS: VALPROIC ACID < 3 mcg/mL (50-100)
[2019-11-12] MEDS ORDERED: ZOLPIDEM TARTRATE 10 MG TABLET PO PRN (12:00)
[2019-11-12] MEDS ORDERED: SODIUM CHLORIDE 0.9% 1,000 ML IV ONE (12:00)
[2019-11-12 13:22] LABS: APPEARANCE,URINE TURBID (CLEAR); GLUCOSE, URINE (UA) NEGATIVE (NEGATIVE); KETONES,URINE 40 mg/dL (NEGATIVE); LEUKOCYTE ESTERASE ,URINE MODERATE (NEGATIVE); NITRATE,URINE NEGATIVE (NEGATIVE); OCCULT BLOOD,URINE NEGATIVE (NEGATIVE); PROTEIN,URINE SEE CONFIRM (NEGATIVE)
[2019-11-12 13:24] LABS: BILIRUBIN,URINE PRELIM. POSITIVE (NEGATIVE)
[2019-11-12 13:32] LABS: SULFOSALICYLIC ACID,URINE 2+ (Negative)
[2019-11-12 13:33] LABS: BACTERIA,URINE None Seen /HPF (None Seen); RBC,URINE 0-2 /HPF (0-2)
[2019-11-12 13:35] LABS: SQUAMOUS EPITHELIAL CELL,UR Few /LPF (None Seen)
[2019-11-12] MEDS ORDERED: CloNIDine HCL 0.1 MG TABLET PO PRN (19:45)
[2019-11-12] MEDS ORDERED: ACETAMINOPHEN 325 MG TABLET PO PRN (19:45)
[2019-11-12] MEDS ORDERED: PETROLATUM,WHITE 28 GM JELLY TP PRN (19:45)
[2019-11-12] MEDS ORDERED: GuaiFENesin/D-METHORPHAN [SUGAR-FREE] 200-20MG/10 ML SYRUP UDCUP PO PRN (19:45)
[2019-11-12] MEDS ORDERED: DOCUSATE SODIUM 100 MG CAPSULE PO PRN (19:45)
[2019-11-12] MEDS ORDERED: ALBUTEROL SULFATE HFA 90 MCG/PUFF 8 GM INHALER IH PRN (19:45)
[2019-11-12] MEDS ORDERED: MAG HYDROX/AL HYDROX/SIMETH ES 30 ML SUSPENSION UDCUP PO PRN (19:45)
[2019-11-12] MEDS ORDERED: LOPERAMIDE HCL 2 MG CAPSULE PO PRN (19:45)
[2019-11-12] MEDS ORDERED: NICOTINE 14 MG/24 HOUR PATCH TD PRN (19:45)
[2019-11-12] MEDS ORDERED: ONDANSETRON HCL 4 MG TABLET PO PRN (19:45)
[2019-11-12] MEDS ORDERED: MAGNESIUM HYDROXIDE SUSPENSION 30 ML UDCUP PO PRN (19:45)
[2019-11-12 21:45] VITALS: BP 103/64
[2019-11-12] MEDS: METHIMAZOLE 5 MG TABLET PO SCH (22:05)
[2019-11-12] MEDS: DIVALPROEX SODIUM 250 MG ER TABLET PO SCH (22:05)
[2019-11-12] MEDS: OLANZapine 10 MG TABLET PO SCH (22:06)
[2019-11-12] MEDS: SERTRALINE HCL 100 MG TABLET PO SCH (22:06)
[2019-11-12] MEDS: PROPRANOLOL HCL 10 MG TABLET PO SCH (22:06)
[2019-11-13 05:44] VITALS: BP 105/57
[2019-11-13 07:26] LABS: BASOPHILS % (AUTO) 0.5 % (0.0-2.0); HEMATOCRIT 33.1 % (41-53); HEMOGLOBIN 10.8 g/dL (13.5-17.5); LYMPHOCYTES # (AUTO) 2.4 K/uL (1.0-4.8); LYMPHOCYTES % (AUTO) 41.3 % (22.0-44.0); MEAN CORPUSCULAR HEMOGLOBIN 25.2 pg (26.0-34.0); MEAN CORPUSCULAR HGB CONC 32.7 G/dL (31.0-37.0); MEAN CORPUSCULAR VOLUME 77 fL (80-100); MONOCYTES # (AUTO) 0.6 K/uL (0.1-1.0); MONOCYTES % (AUTO) 10.5 % (2.0-9.0); NEUTROPHILS # (AUTO) 2.4 K/uL (1.8-7.7); NEUTROPHILS % (AUTO) 41.7 % (40.0-70.0); PLATELET COUNT (AUTO) 209 K/uL (150-450); RED CELL DISTRIBUTION WIDTH 14.7 % (11.5-14.5)
[2019-11-13 07:39] LABS: HEMOGLOBIN A1C 6.7 % (4.5-6.2)
[2019-11-13 08:06] LABS: ALANINE AMINOTRANSFERASE 38 U/L (12-78); ALBUMIN 2.8 g/dL (3.4-5.0); ALKALINE PHOSPHATASE 81 U/L (46-116); ANION GAP 8 mmol/L (8-16); ASPARTATE AMINOTRANSFERASE 44 U/L (15-37); BILIRUBIN,TOTAL 1.1 mg/dL (0.1-1.0); CALCIUM, TOTAL 8.6 mg/dL (8.8-10.5); CARBON DIOXIDE 24 mmol/L (22-29); CHLORIDE 106 mmol/L (98-107); CHOL/HDL RATIO 2.6 (4.2-7.3); CHOLESTEROL 87 mg/dL (131-200); CREATININE 0.71 mg/dL (0.60-1.30); FREE T4 (FREE THYROXINE) 4.94 ng/dL (0.76-1.46); GLOMERULAR FILTR. RATE CALC > 60 mL/min (>60); GLUCOSE,RANDOM 79 mg/dL (70-110); HDL CHOLESTEROL 33 mg/dL (40-60); LDL CHOL (CALC.) 46 mg/dL (0-130); POTASSIUM 3.9 mmol/L (3.5-5.1); SODIUM SERUM 138 mmol/L (136-145); TOTAL PROTEIN, SERUM 6.4 g/dL (6.4-8.2); TRIGLYCERIDES 42 mg/dL (15-150); UREA NITROGEN, BLOOD 14 mg/dL (7-18)
[2019-11-13 08:08] LABS: THYROID STIMULATING HORMONE < 0.01 uIU/mL (0.36-3.74)
[2019-11-13] MEDS ORDERED: IBUPROFEN 400 MG TABLET PO PRN (08:15)
[2019-11-13] MEDS ORDERED: ACETAMINOPHEN 325 MG TABLET PO PRN (08:15)
[2019-11-13] MEDS ORDERED: GuaiFENesin/D-METHORPHAN [SUGAR-FREE] 200-20MG/10 ML SYRUP UDCUP PO PRN (08:15)
[2019-11-13] MEDS ORDERED: MAGNESIUM HYDROXIDE SUSPENSION 30 ML UDCUP PO PRN (08:15)
[2019-11-13] MEDS ORDERED: CloNIDine HCL 0.1 MG TABLET PO PRN (08:15)
[2019-11-13] MEDS ORDERED: NICOTINE 14 MG/24 HOUR PATCH TD PRN (08:15)
[2019-11-13] MEDS ORDERED: ALBUTEROL SULFATE HFA 90 MCG/PUFF 8 GM INHALER IH PRN (08:15)
[2019-11-13] MEDS ORDERED: ONDANSETRON HCL 4 MG TABLET PO PRN (08:15)
[2019-11-13] MEDS ORDERED: DOCUSATE SODIUM 100 MG CAPSULE PO PRN (08:15)
[2019-11-13] MEDS ORDERED: PETROLATUM,WHITE 28 GM JELLY TP PRN (08:15)
[2019-11-13] MEDS ORDERED: MAG HYDROX/AL HYDROX/SIMETH ES 30 ML SUSPENSION UDCUP PO PRN (08:15)
[2019-11-13] MEDS ORDERED: LOPERAMIDE HCL 2 MG CAPSULE PO PRN (08:15)
[2019-11-13] MEDS: PROPRANOLOL HCL 10 MG TABLET PO SCH ×2 (09:36→16:26)
[2019-11-13] MEDS: DIVALPROEX SODIUM 250 MG ER TABLET PO SCH ×2 (09:38→16:26)
[2019-11-13] MEDS: METHIMAZOLE 5 MG TABLET PO SCH ×2 (09:38→16:26)
[2019-11-13] MEDS: HALOPERIDOL 5 MG TABLET PO PRN ×2 (11:33→16:27)
[2019-11-13] MEDS: LORazepam 2 MG TABLET PO PRN ×2 (11:34→16:26)
[2019-11-13 17:32] VITALS: BP 109/54
[2019-11-13] MEDS: SERTRALINE HCL 100 MG TABLET PO SCH (20:11)
[2019-11-13] MEDS: OLANZapine 10 MG TABLET PO SCH (20:11)
[2019-11-14 08:00] VITALS: BP 101/63
[2019-11-14] MEDS: DIVALPROEX SODIUM 250 MG ER TABLET PO SCH ×2 (09:28→16:35)
[2019-11-14] MEDS: MULTIVITAMINS WITH MINERALS, THERAPEUTIC TABLET PO SCH (09:28)
[2019-11-14] MEDS: PROPRANOLOL HCL 10 MG TABLET PO SCH ×2 (10:46→16:55)
[2019-11-14] MEDS: METHIMAZOLE 5 MG TABLET PO SCH ×2 (10:47→16:35)
[2019-11-14 16:11] VITALS: BP 106/73
[2019-11-14] MEDS: LORazepam 2 MG TABLET PO PRN (16:35)
[2019-11-14] MEDS: OLANZapine 10 MG TABLET PO SCH (21:25)
[2019-11-14] MEDS: SERTRALINE HCL 100 MG TABLET PO SCH (21:25)
[2019-11-15 05:12] VITALS: BP 110/68
[2019-11-15 08:36] VITALS: BP 112/70
[2019-11-15] MEDS: MULTIVITAMINS WITH MINERALS, THERAPEUTIC TABLET PO SCH (09:31)
[2019-11-15] MEDS: PROPRANOLOL HCL 10 MG TABLET PO SCH ×2 (09:32→16:39)
[2019-11-15] MEDS: DIVALPROEX SODIUM 250 MG ER TABLET PO SCH ×2 (09:32→16:39)
[2019-11-15] MEDS: METHIMAZOLE 5 MG TABLET PO SCH ×2 (09:33→16:39)
[2019-11-15] MEDS: IBUPROFEN 400 MG TABLET PO PRN (09:40)
[2019-11-15 16:00] VITALS: BP 108/69
[2019-11-15] MEDS: LORazepam 2 MG TABLET PO PRN (16:39)
[2019-11-15] MEDS: SERTRALINE HCL 100 MG TABLET PO SCH (20:47)
[2019-11-15] MEDS: OLANZapine 10 MG TABLET PO SCH (20:47)
[2019-11-16 08:40] VITALS: BP 110/64
[2019-11-16] MEDS: DIVALPROEX SODIUM 250 MG ER TABLET PO SCH ×2 (08:56→16:41)
[2019-11-16] MEDS: MULTIVITAMINS WITH MINERALS, THERAPEUTIC TABLET PO SCH (08:56)
[2019-11-16] MEDS: PROPRANOLOL HCL 10 MG TABLET PO SCH ×2 (08:56→16:40)
[2019-11-16] MEDS: METHIMAZOLE 5 MG TABLET PO SCH ×2 (08:56→16:41)
[2019-11-16 16:16] VITALS: BP 106/63
[2019-11-16] MEDS: OLANZapine 10 MG TABLET PO SCH (20:20)
[2019-11-16] MEDS: SERTRALINE HCL 100 MG TABLET PO SCH (20:21)
[2019-11-17 06:20] VITALS: BP 109/57
[2019-11-17] MEDS: DIVALPROEX SODIUM 250 MG ER TABLET PO SCH ×2 (09:33→16:54)
[2019-11-17] MEDS: PROPRANOLOL HCL 10 MG TABLET PO SCH ×2 (09:46→16:54)
[2019-11-17] MEDS: MULTIVITAMINS WITH MINERALS, THERAPEUTIC TABLET PO SCH (10:57)
[2019-11-17] MEDS: METHIMAZOLE 5 MG TABLET PO SCH ×2 (10:57→16:54)
[2019-11-17 14:06] VITALS: BP 120/65
[2019-11-17 18:16] VITALS: BP 107/76
[2019-11-17] MEDS: OLANZapine 10 MG TABLET PO SCH (20:19)
[2019-11-17] MEDS: SERTRALINE HCL 100 MG TABLET PO SCH (20:19)
[2019-11-18 05:27] VITALS: BP 113/76
[2019-11-18 08:21] VITALS: BP 115/76
[2019-11-18] MEDS: MULTIVITAMINS WITH MINERALS, THERAPEUTIC TABLET PO SCH (09:24)
[2019-11-18] MEDS: DIVALPROEX SODIUM 250 MG ER TABLET PO SCH ×2 (09:24→16:43)
[2019-11-18] MEDS: PROPRANOLOL HCL 10 MG TABLET PO SCH ×2 (09:25→16:43)
[2019-11-18] MEDS: METHIMAZOLE 5 MG TABLET PO SCH ×2 (09:25→16:43)
[2019-11-18 16:00] VITALS: BP 132/64
[2019-11-18] MEDS: OLANZapine 10 MG TABLET PO SCH (20:20)
[2019-11-18] MEDS: SERTRALINE HCL 100 MG TABLET PO SCH (20:20)
[2019-11-19 06:52] VITALS: BP 115/68
[2019-11-19] MEDS: METHIMAZOLE 5 MG TABLET PO SCH (08:29)
[2019-11-19] MEDS: DIVALPROEX SODIUM 250 MG ER TABLET PO SCH (08:30)
[2019-11-19] MEDS: MULTIVITAMINS WITH MINERALS, THERAPEUTIC TABLET PO SCH (08:30)
[2019-11-19] MEDS: PROPRANOLOL HCL 10 MG TABLET PO SCH (08:30)
[2019-11-19] MEDS: IBUPROFEN 400 MG TABLET PO PRN (09:06)
[2019-11-19 09:07] VITALS: BP 127/73
[2019-11-19] MEDS ORDERED: DIVA250T45 PO (10:12)
[2019-11-19] MEDS ORDERED: SERT100T12 PO (10:12)
[2019-11-19] MEDS ORDERED: METH5TAB58 PO (10:12)
[2019-11-19] MEDS ORDERED: PROP10TA73 PO (10:12)
[2019-11-19] MEDS ORDERED: OLAN10TA3 PO (10:12)
== END 2019-11-19 11:45 | disposition home or self-care (01) | DRG 750 ==
LOC: EMS 10:04 → B3A 19:38
PROVIDERS: ADMIT Psychiatry & Neurology Psychiatry; ATTEND Psychiatry & Neurology Psychiatry
DX: F25.0 Schizoaffective disorder, bipolar type (principal); R45.851 Suicidal ideations; R74.0 Nonspecific elevation of levels of transaminase and lactic acid dehydrogenase [LDH]; F41.9 Anxiety disorder, unspecified; F19.10 Other psychoactive substance abuse, uncomplicated; I12.9 Hypertensive chronic kidney disease with stage 1 through stage 4 chronic kidney disease, or unspecified chronic kidney disease; N18.9 Chronic kidney disease, unspecified; D64.9 Anemia, unspecified; E03.9 Hypothyroidism, unspecified; F15.10 Other stimulant abuse, uncomplicated; R73.03 Prediabetes; Z59.0 Homelessness; Z79.899 Other long term (current) drug therapy; Z87.891 Personal history of nicotine dependence; Z91.19 Patient's noncompliance with other medical treatment and regimen
CPT/HCPCS: 83036; 84439; 84443; 87081; 87086; 93005; G0480; J1630; J2060; J7030

== ENCOUNTER 2020-04-07 09:48 | Emergency (ER) | payer MEDICAID, OTHER ==
[~2020-04-07] VITALS: Ht 172.7 cm; Wt 72.7 kg
[~2020-04-07 09:48] MED LIST changes: -METH10TA PO; +METH5TAB58 PO
[2020-04-07 10:57] LABS: BASOPHILS % (AUTO) 0.4 % (0.0-2.0); EOSINOPHILS % (AUTO) 4.2 % (1.0-6.0); HEMOGLOBIN 12.6 g/dL (13.5-17.5); LYMPHOCYTES # (AUTO) 1.9 K/uL (1.0-4.8); LYMPHOCYTES % (AUTO) 46.2 % (22.0-44.0); MEAN CORPUSCULAR HEMOGLOBIN 24.8 pg (26.0-34.0); MEAN CORPUSCULAR HGB CONC 32.3 G/dL (31.0-37.0); MEAN CORPUSCULAR VOLUME 77 fL (80-100); MONOCYTES # (AUTO) 0.4 K/uL (0.1-1.0); NEUTROPHILS # (AUTO) 1.7 K/uL (1.8-7.7); NEUTROPHILS % (AUTO) 40.2 % (40.0-70.0); PLATELET COUNT (AUTO) 226 K/uL (150-450); RED BLOOD CELL COUNT(AUTO) 5.08 MIL/uL (4.50-5.90); RED CELL DISTRIBUTION WIDTH 14.6 % (11.5-14.5)
[2020-04-07 11:17] LABS: ALANINE AMINOTRANSFERASE 34 U/L (12-78); ALBUMIN 3.3 g/dL (3.4-5.0); ALKALINE PHOSPHATASE 100 U/L (46-116); ASPARTATE AMINOTRANSFERASE 19 U/L (15-37); BILIRUBIN,TOTAL 0.4 mg/dL (0.1-1.0); CALCIUM, TOTAL 8.9 mg/dL (8.8-10.5); CHLORIDE 111 mmol/L (98-107); CREATININE 0.56 mg/dL (0.60-1.30); GLOMERULAR FILTR. RATE CALC > 60 mL/min (>60); GLUCOSE,RANDOM 100 mg/dL (70-110); SODIUM SERUM 145 mmol/L (136-145); TOTAL PROTEIN, SERUM 7.3 g/dL (6.4-8.2); UREA NITROGEN, BLOOD 15 mg/dL (7-18)
[2020-04-07 11:31] LABS: ANION GAP 8 mmol/L (8-16); CARBON DIOXIDE 26 mmol/L (22-29)
[2020-04-07 11:50] LABS: AMPHET/METH SCREEN,URINE NEGATIVE (NEGATIVE); BARBITURATE SCREEN, URINE NEGATIVE (NEGATIVE); BENZODIAZEPINES SCREEN,URINE NEGATIVE (NEGATIVE); CANNABINOID SCREEN,URINE NEGATIVE (NEGATIVE); COCAINE SCREEN,URINE NEGATIVE (NEGATIVE); METHADONE SCREEN, URINE NEGATIVE (NEGATIVE); OPIATE SCREEN,URINE NEGATIVE (NEGATIVE)
[2020-04-07 12:05] LABS: PHENCYCLIDINE SCREEN,URINE NEGATIVE (NEGATIVE)
[2020-04-07] MEDS ORDERED: HALOPERIDOL 5 MG TABLET PO ONE (12:45)
[2020-04-07] MEDS ORDERED: ACETAMINOPHEN 325 MG TABLET PO ONE (12:45)
[2020-04-07 14:22] LABS: APPEARANCE,URINE CLEAR (CLEAR); BILIRUBIN,URINE NEGATIVE (NEGATIVE); GLUCOSE, URINE (UA) NEGATIVE (NEGATIVE); KETONES,URINE NEGATIVE (NEGATIVE); LEUKOCYTE ESTERASE ,URINE NEGATIVE (NEGATIVE); NITRATE,URINE NEGATIVE (NEGATIVE); OCCULT BLOOD,URINE NEGATIVE (NEGATIVE); PH,URINE 5.5 (5.0-8.0); PROTEIN,URINE NEGATIVE (NEGATIVE); UROBILINOGEN,URINE 0.2 mg/dL (<=1.0)
[2020-04-07 14:39] LABS: BACTERIA,URINE None Seen /HPF (None Seen); RBC,URINE None Seen /HPF (0-2); WBC,URINE 0-2 /HPF (0-5); YEAST,URINE None Seen /HPF (None Seen)
[2020-04-07 14:40] LABS: SQUAMOUS EPITHELIAL CELL,UR Rare /LPF (None Seen)
[2020-04-07 15:36] VITALS: BP 145/89
== END 2020-04-07 15:50 | disposition home or self-care (01) ==
LOC: EMS 09:49
DX: F25.9 Schizoaffective disorder, unspecified (principal); F31.9 Bipolar disorder, unspecified; F19.10 Other psychoactive substance abuse, uncomplicated; F17.210 Nicotine dependence, cigarettes, uncomplicated; F12.90 Cannabis use, unspecified, uncomplicated
CPT/HCPCS: 36415; 80053; 80307; 81001; 85025; 99284; 99406; G0480

== ENCOUNTER 2020-04-07 22:13 | Emergency (ER) | payer OTHER ==
[~2020-04-07] VITALS: Ht 170.2 cm; Wt 72.7 kg
[2020-04-07 22:45] LABS: BASOPHILS % (AUTO) 0.5 % (0.0-2.0); EOSINOPHILS % (AUTO) 5.4 % (1.0-6.0); HEMATOCRIT 39.7 % (41-53); HEMOGLOBIN 12.5 g/dL (13.5-17.5); LYMPHOCYTES # (AUTO) 2.8 K/uL (1.0-4.8); LYMPHOCYTES % (AUTO) 52.2 % (22.0-44.0); MEAN CORPUSCULAR HEMOGLOBIN 24.1 pg (26.0-34.0); MEAN CORPUSCULAR HGB CONC 31.4 G/dL (31.0-37.0); MEAN CORPUSCULAR VOLUME 77 fL (80-100); MONOCYTES # (AUTO) 0.5 K/uL (0.1-1.0); NEUTROPHILS # (AUTO) 1.8 K/uL (1.8-7.7); NEUTROPHILS % (AUTO) 32.9 % (40.0-70.0); PLATELET COUNT (AUTO) 231 K/uL (150-450); RED BLOOD CELL COUNT(AUTO) 5.17 MIL/uL (4.50-5.90)
[2020-04-07 22:54] LABS: ANION GAP 10 mmol/L (8-16); CALCIUM, TOTAL 8.9 mg/dL (8.8-10.5); CARBON DIOXIDE 28 mmol/L (22-29); CHLORIDE 108 mmol/L (98-107); CREATININE 0.84 mg/dL (0.60-1.30); GLOMERULAR FILTR. RATE CALC > 60 mL/min (>60); GLUCOSE,RANDOM 105 mg/dL (70-110); POTASSIUM 4.4 mmol/L (3.5-5.1); SODIUM SERUM 146 mmol/L (136-145); UREA NITROGEN, BLOOD 19 mg/dL (7-18)
[2020-04-07 22:59] LABS: ALANINE AMINOTRANSFERASE 36 U/L (12-78); ALBUMIN 3.3 g/dL (3.4-5.0); ALKALINE PHOSPHATASE 106 U/L (46-116); ASPARTATE AMINOTRANSFERASE 19 U/L (15-37); BILIRUBIN,TOTAL 0.2 mg/dL (0.1-1.0); TOTAL PROTEIN, SERUM 7.3 g/dL (6.4-8.2)
[2020-04-08 01:51] VITALS: BP 138/84
[2020-04-08 02:27] LABS: AMPHET/METH SCREEN,URINE NEGATIVE (NEGATIVE); BARBITURATE SCREEN, URINE NEGATIVE (NEGATIVE); BENZODIAZEPINES SCREEN,URINE NEGATIVE (NEGATIVE); CANNABINOID SCREEN,URINE NEGATIVE (NEGATIVE); COCAINE SCREEN,URINE NEGATIVE (NEGATIVE); METHADONE SCREEN, URINE NEGATIVE (NEGATIVE); OPIATE SCREEN,URINE NEGATIVE (NEGATIVE)
[2020-04-08 02:28] LABS: PHENCYCLIDINE SCREEN,URINE NEGATIVE (NEGATIVE)
[2020-04-08] MEDS ORDERED: DIVALPROEX SODIUM 500 MG ER TABLET PO ONE (03:00)
[2020-04-08] MEDS ORDERED: OLANZapine 5 MG TABLET PO ONE (03:00)
== END 2020-04-08 03:51 | disposition home or self-care (01) ==
LOC: EMS 22:14
DX: F20.0 Paranoid schizophrenia (principal); F41.9 Anxiety disorder, unspecified; F17.210 Nicotine dependence, cigarettes, uncomplicated; F20.9 Schizophrenia, unspecified; F12.90 Cannabis use, unspecified, uncomplicated; F19.90 Other psychoactive substance use, unspecified, uncomplicated; Z59.0 Homelessness
CPT/HCPCS: 36415; 80053; 80307; 85025; 99284; 99406; G0480

== ENCOUNTER 2021-08-06 21:22 | Inpatient (IN) | payer MEDICAID, OTHER ==
[~2021-08-06] VITALS: Ht 170.2 cm; Wt 98.4 kg
[~2021-08-06 21:22] MED LIST changes: -DIVA250T45 PO; +METH-386 PO; -METH5TAB58 PO; +METO25 PO; -OLAN10TA3 PO; -PROP10TA73 PO; +RISP0.5T61 PO; -SERT100T12 PO
[2021-08-06] MEDS ORDERED: LORazepam 2 MG TABLET PO PRN (22:45)
[2021-08-06 22:52] LABS: BASOPHILS % (AUTO) 0.6 % (0.0-2.0); EOSINOPHILS % (AUTO) 1.6 % (1.0-6.0); HEMATOCRIT 40.9 % (41-53); HEMOGLOBIN 13.3 g/dL (13.5-17.5); LYMPHOCYTES # (AUTO) 1.7 K/uL (1.0-4.8); LYMPHOCYTES % (AUTO) 20.7 % (22.0-44.0); MEAN CORPUSCULAR HEMOGLOBIN 27.3 pg (26.0-34.0); MEAN CORPUSCULAR HGB CONC 32.5 G/dL (31.0-37.0); MEAN CORPUSCULAR VOLUME 84 fL (80-100); MONOCYTES # (AUTO) 0.4 K/uL (0.1-1.0); MONOCYTES % (AUTO) 4.9 % (2.0-9.0); NEUTROPHILS # (AUTO) 5.8 K/uL (1.8-7.7); NEUTROPHILS % (AUTO) 72.2 % (40.0-70.0); PLATELET COUNT (AUTO) 308 K/uL (150-450); RED BLOOD CELL COUNT(AUTO) 4.88 MIL/uL (4.50-5.90); RED CELL DISTRIBUTION WIDTH 15.4 % (11.5-14.5)
[2021-08-06 22:58] LABS: ANION GAP 13 mmol/L (8-16); CALCIUM, TOTAL 9.2 mg/dL (8.8-10.5); CARBON DIOXIDE 27 mmol/L (22-29); CHLORIDE 107 mmol/L (98-107); CREATININE 1.07 mg/dL (0.60-1.30); GLOMERULAR FILTR. RATE CALC > 60 mL/min (>60); GLUCOSE,RANDOM 98 mg/dL (70-110); POTASSIUM 3.9 mmol/L (3.5-5.1); SODIUM SERUM 147 mmol/L (136-145); UREA NITROGEN, BLOOD 13 mg/dL (7-18)
[2021-08-06 23:04] LABS: ALANINE AMINOTRANSFERASE 24 U/L (12-78); ALBUMIN 3.9 g/dL (3.4-5.0); ALKALINE PHOSPHATASE 82 U/L (46-116); ASPARTATE AMINOTRANSFERASE 17 U/L (15-37); BILIRUBIN,TOTAL 0.3 mg/dL (0.1-1.0); TOTAL PROTEIN, SERUM 8.5 g/dL (6.4-8.2)
[2021-08-06 23:10] LABS: COVID AG,FIA SOURCE NASOPHARYNGEAL
[2021-08-06 23:26] LABS: AMPHET/METH SCREEN,URINE NEGATIVE (NEGATIVE); BARBITURATE SCREEN, URINE NEGATIVE (NEGATIVE); BENZODIAZEPINES SCREEN,URINE NEGATIVE (NEGATIVE); CANNABINOID SCREEN,URINE NEGATIVE (NEGATIVE); COCAINE SCREEN,URINE NEGATIVE (NEGATIVE); METHADONE SCREEN, URINE NEGATIVE (NEGATIVE); OPIATE SCREEN,URINE NEGATIVE (NEGATIVE)
[2021-08-06 23:30] LABS: PHENCYCLIDINE SCREEN,URINE NEGATIVE (NEGATIVE)
[2021-08-07 01:28] VITALS: BP 136/94
[2021-08-07] MEDS ORDERED: INFLUENZA VIRUS VACCINE QVS 2021-22 (6MO+)/PF 60 MCG/0.5 ML SYRINGE IM. ONE (02:30)
[2021-08-07 05:25] LABS: APPEARANCE,URINE SL CLOUDY (CLEAR); BILIRUBIN,URINE NEGATIVE (NEGATIVE); GLUCOSE, URINE (UA) NEGATIVE (NEGATIVE); KETONES,URINE NEGATIVE (NEGATIVE); LEUKOCYTE ESTERASE ,URINE NEGATIVE (NEGATIVE); NITRATE,URINE NEGATIVE (NEGATIVE); OCCULT BLOOD,URINE NEGATIVE (NEGATIVE); PROTEIN,URINE NEGATIVE (NEGATIVE)
[2021-08-07 06:37] LABS: CHOL/HDL RATIO 3.8 (4.2-7.3)
[2021-08-07 08:00] VITALS: BP 137/84
[2021-08-07] MEDS ORDERED: DOCUSATE SODIUM 100 MG CAPSULE PO PRN (08:45)
[2021-08-07] MEDS ORDERED: IBUPROFEN 600 MG TABLET PO PRN (08:45)
[2021-08-07] MEDS ORDERED: LOPERAMIDE HCL 2 MG CAPSULE PO PRN (08:45)
[2021-08-07] MEDS ORDERED: CloNIDine HCL 0.1 MG TABLET PO PRN (08:45)
[2021-08-07] MEDS ORDERED: BENZOCAINE/MENTHOL LOZENGE PO PRN (08:45)
[2021-08-07] MEDS ORDERED: ONDANSETRON HCL 4 MG TABLET PO PRN (08:45)
[2021-08-07] MEDS ORDERED: ALBUTEROL SULFATE HFA 90 MCG/PUFF 8 GM INHALER IH PRN (08:45)
[2021-08-07] MEDS ORDERED: BACITRACIN 28 GM OINTMENT TP PRN (08:45)
[2021-08-07] MEDS ORDERED: MAG HYDROX/AL HYDROX/SIMETH ES 30 ML SUSPENSION UDCUP PO PRN (08:45)
[2021-08-07] MEDS ORDERED: PETROLATUM,WHITE 28 GM JELLY TP PRN (08:45)
[2021-08-07] MEDS ORDERED: ACETAMINOPHEN 325 MG TABLET PO PRN (08:45)
[2021-08-07] MEDS ORDERED: OMEPRAZOLE 20 MG CAPSULE PO PRN (08:45)
[2021-08-07] MEDS ORDERED: MAGNESIUM HYDROXIDE SUSPENSION 30 ML UDCUP PO PRN (08:45)
[2021-08-07] MEDS: METHIMAZOLE 5 MG TABLET PO SCH ×3 (09:45→16:52)
[2021-08-07] MEDS: METOPROLOL TARTRATE 25 MG TABLET PO SCH ×2 (09:47→16:52)
[2021-08-07 16:00] VITALS: BP 127/87
[2021-08-08 07:35] LABS: POTASSIUM 4.6 mmol/L (3.5-5.1); THYROID STIMULATING HORMONE 6.62 uIU/mL (0.36-3.74)
[2021-08-08 08:00] VITALS: BP 138/84
[2021-08-08] MEDS: METHIMAZOLE 5 MG TABLET PO SCH ×3 (08:03→17:17)
[2021-08-08] MEDS: METOPROLOL TARTRATE 25 MG TABLET PO SCH ×2 (08:03→17:18)
[2021-08-08] MEDS: RisperiDONE 1 MG TABLET PO SCH ×2 (10:14→17:17)
[2021-08-08 16:04] VITALS: BP 140/90
[2021-08-09 07:06] LABS: HIV 1-2 SCREEN 4TH GEN W/RFLX Non Reactive (Non Reactive)
[2021-08-09] MEDS: RisperiDONE 1 MG TABLET PO SCH (09:07)
[2021-08-09] MEDS: METHIMAZOLE 5 MG TABLET PO SCH ×3 (09:07→16:35)
[2021-08-09] MEDS: METOPROLOL TARTRATE 25 MG TABLET PO SCH ×2 (09:07→16:35)
[2021-08-09 09:14] VITALS: BP 131/73
[2021-08-09] MEDS: RisperiDONE 3 MG TABLET PO SCH (16:35)
[2021-08-09 16:49] VITALS: BP 127/82
[2021-08-10] MEDS: ZOLPIDEM TARTRATE 10 MG TABLET PO PRN (00:40)
[2021-08-10 00:46] VITALS: BP 124/88
[2021-08-10 08:51] VITALS: BP 112/82
[2021-08-10] MEDS: RisperiDONE 3 MG TABLET PO SCH ×2 (09:30→16:26)
[2021-08-10] MEDS: METOPROLOL TARTRATE 25 MG TABLET PO SCH ×2 (09:31→16:27)
[2021-08-10] MEDS: METHIMAZOLE 5 MG TABLET PO SCH ×3 (09:31→16:26)
[2021-08-10 16:59] VITALS: BP 145/95
[2021-08-11 01:05] VITALS: BP 130/86
[2021-08-11 08:49] VITALS: BP 146/82
[2021-08-11] MEDS: METOPROLOL TARTRATE 25 MG TABLET PO SCH ×2 (08:49→16:33)
[2021-08-11] MEDS: RisperiDONE 3 MG TABLET PO SCH ×2 (08:49→16:33)
[2021-08-11] MEDS: METHIMAZOLE 5 MG TABLET PO SCH ×3 (08:50→16:33)
[2021-08-11 16:03] VITALS: BP 132/73
[2021-08-12 08:04] VITALS: BP 128/78
[2021-08-12] MEDS: METHIMAZOLE 5 MG TABLET PO SCH ×3 (09:05→16:21)
[2021-08-12] MEDS: RisperiDONE 3 MG TABLET PO SCH ×2 (09:07→16:21)
[2021-08-12] MEDS: METOPROLOL TARTRATE 25 MG TABLET PO SCH ×2 (09:51→16:21)
[2021-08-12 12:25] LABS: COVID AG,FIA SOURCE NASOPHARYNGEAL
[2021-08-12 17:06] VITALS: BP 123/76
[2021-08-12] MEDS: OLANZapine 5 MG RAPDIS TABLET PO PRN (20:18)
[2021-08-12] MEDS: ZOLPIDEM TARTRATE 10 MG TABLET PO PRN (20:18)
[2021-08-13 08:00] VITALS: BP 138/74
[2021-08-13] MEDS: RisperiDONE 3 MG TABLET PO SCH ×2 (08:09→16:33)
[2021-08-13] MEDS: METOPROLOL TARTRATE 25 MG TABLET PO SCH ×2 (08:10→16:33)
[2021-08-13] MEDS: METHIMAZOLE 5 MG TABLET PO SCH ×3 (08:10→16:32)
[2021-08-13 16:27] VITALS: BP 126/96
[2021-08-13] MEDS: ZOLPIDEM TARTRATE 10 MG TABLET PO PRN (21:13)
[2021-08-13 21:15] VITALS: BP 125/74
[2021-08-14 08:00] VITALS: BP 130/74
[2021-08-14] MEDS: METOPROLOL TARTRATE 25 MG TABLET PO SCH ×2 (08:57→16:02)
[2021-08-14] MEDS: METHIMAZOLE 5 MG TABLET PO SCH ×3 (08:57→16:02)
[2021-08-14] MEDS: RisperiDONE 3 MG TABLET PO SCH ×2 (08:57→16:02)
[2021-08-14 16:14] VITALS: BP 124/77
[2021-08-15 08:00] VITALS: BP 142/96
[2021-08-15] MEDS: METOPROLOL TARTRATE 25 MG TABLET PO SCH ×2 (09:28→16:56)
[2021-08-15] MEDS: METHIMAZOLE 5 MG TABLET PO SCH ×3 (09:28→16:55)
[2021-08-15] MEDS: RisperiDONE 3 MG TABLET PO SCH ×2 (09:28→16:55)
[2021-08-15 17:45] VITALS: BP 108/63
[2021-08-16] MEDS: METOPROLOL TARTRATE 25 MG TABLET PO SCH ×2 (08:20→17:31)
[2021-08-16] MEDS: RisperiDONE 3 MG TABLET PO SCH ×2 (08:20→17:31)
[2021-08-16] MEDS: METHIMAZOLE 5 MG TABLET PO SCH ×3 (08:21→17:30)
[2021-08-16 08:55] VITALS: BP 156/90
[2021-08-16 17:00] VITALS: BP 112/71
[2021-08-16] MEDS: OLANZapine 5 MG RAPDIS TABLET PO PRN (17:32)
[2021-08-17 08:00] VITALS: BP 123/91
[2021-08-17] MEDS: RisperiDONE 3 MG TABLET PO SCH ×2 (08:57→16:31)
[2021-08-17] MEDS: METHIMAZOLE 5 MG TABLET PO SCH ×3 (08:57→16:31)
[2021-08-17] MEDS: METOPROLOL TARTRATE 25 MG TABLET PO SCH ×2 (08:57→16:31)
[2021-08-17 16:43] VITALS: BP 125/85
[2021-08-18] MEDS: METOPROLOL TARTRATE 25 MG TABLET PO SCH ×2 (08:11→16:34)
[2021-08-18] MEDS: METHIMAZOLE 5 MG TABLET PO SCH ×3 (08:11→16:34)
[2021-08-18] MEDS: RisperiDONE 3 MG TABLET PO SCH ×2 (08:11→16:34)
[2021-08-18 09:11] VITALS: BP 122/85
[2021-08-18 16:07] VITALS: BP 116/71
[2021-08-19] MEDS: METHIMAZOLE 5 MG TABLET PO SCH ×3 (09:00→16:32)
[2021-08-19] MEDS: RisperiDONE 3 MG TABLET PO SCH ×2 (09:00→16:33)
[2021-08-19] MEDS: METOPROLOL TARTRATE 25 MG TABLET PO SCH ×2 (09:00→16:32)
[2021-08-19 09:15] LABS: COVID AG,FIA SOURCE NASOPHARYNGEAL
[2021-08-19 10:07] VITALS: BP 150/91
[2021-08-19 16:26] VITALS: BP 140/90
[2021-08-20 09:27] VITALS: BP 106/80
[2021-08-20] MEDS: METOPROLOL TARTRATE 25 MG TABLET PO SCH ×2 (09:33→16:17)
[2021-08-20] MEDS: RisperiDONE 3 MG TABLET PO SCH ×2 (09:33→16:17)
[2021-08-20] MEDS: METHIMAZOLE 5 MG TABLET PO SCH ×3 (09:34→16:16)
[2021-08-20 16:00] VITALS: BP 117/74
[2021-08-21 08:58] VITALS: BP 139/91
[2021-08-21] MEDS: METOPROLOL TARTRATE 25 MG TABLET PO SCH ×2 (09:39→16:58)
[2021-08-21] MEDS: RisperiDONE 3 MG TABLET PO SCH ×2 (09:40→16:57)
[2021-08-21] MEDS: METHIMAZOLE 5 MG TABLET PO SCH ×3 (09:40→16:58)
[2021-08-21 17:00] VITALS: BP 14/96
[2021-08-22 08:00] VITALS: BP 130/82
[2021-08-22] MEDS: METHIMAZOLE 5 MG TABLET PO SCH ×3 (09:01→16:12)
[2021-08-22] MEDS: RisperiDONE 3 MG TABLET PO SCH ×2 (09:01→16:15)
[2021-08-22] MEDS: METOPROLOL TARTRATE 25 MG TABLET PO SCH ×2 (09:12→16:12)
[2021-08-22 16:17] VITALS: BP 122/69
[2021-08-23 08:00] VITALS: BP 147/96
[2021-08-23] MEDS: RisperiDONE 3 MG TABLET PO SCH ×2 (08:24→16:48)
[2021-08-23] MEDS: METHIMAZOLE 5 MG TABLET PO SCH ×3 (08:25→16:48)
[2021-08-23] MEDS: METOPROLOL TARTRATE 25 MG TABLET PO SCH ×2 (08:41→16:48)
[2021-08-23 17:00] VITALS: BP 131/81
[2021-08-24] MEDS: RisperiDONE 3 MG TABLET PO SCH ×2 (08:55→16:05)
[2021-08-24] MEDS: METHIMAZOLE 5 MG TABLET PO SCH ×3 (08:55→16:04)
[2021-08-24] MEDS: METOPROLOL TARTRATE 25 MG TABLET PO SCH ×2 (09:14→16:04)
[2021-08-24 09:40] VITALS: BP 137/76
[2021-08-24 09:43] VITALS: BP 148/87
[2021-08-24 16:15] VITALS: BP 123/81
[2021-08-25 08:00] VITALS: BP 166/84
[2021-08-25] MEDS: METOPROLOL TARTRATE 25 MG TABLET PO SCH ×2 (09:06→16:05)
[2021-08-25] MEDS: METHIMAZOLE 5 MG TABLET PO SCH ×3 (09:06→16:05)
[2021-08-25] MEDS: RisperiDONE 3 MG TABLET PO SCH ×2 (09:07→16:04)
[2021-08-25] MEDS ORDERED: GABA-1181 PO (14:37)
[2021-08-25] MEDS ORDERED: QUET200T PO (14:38)
[2021-08-25] MEDS ORDERED: SERT-162 PO (14:39)
[2021-08-25] MEDS ORDERED: AMLO-258 PO (14:41)
[2021-08-25] MEDS ORDERED: LEVO50 PO (14:42)
[2021-08-25] MEDS ORDERED: LISI-894 PO (14:43)
[2021-08-25] MEDS ORDERED: PROP20TA18 PO (14:44)
[2021-08-25 16:38] VITALS: BP 134/87
[2021-08-26 08:00] VITALS: BP 156/83
[2021-08-26] MEDS: METHIMAZOLE 5 MG TABLET PO SCH ×3 (08:40→16:08)
[2021-08-26] MEDS: RisperiDONE 3 MG TABLET PO SCH ×2 (08:40→16:08)
[2021-08-26] MEDS: METOPROLOL TARTRATE 25 MG TABLET PO SCH ×2 (08:40→16:09)
[2021-08-26 14:09] LABS: COVID AG,FIA SOURCE NASOPHARYNGEAL
[2021-08-26 16:36] VITALS: BP 122/82
[2021-08-27 08:00] VITALS: BP 152/90
[2021-08-27] MEDS: RisperiDONE 3 MG TABLET PO SCH ×2 (09:04→16:13)
[2021-08-27] MEDS: METHIMAZOLE 5 MG TABLET PO SCH ×3 (09:04→17:09)
[2021-08-27] MEDS: METOPROLOL TARTRATE 25 MG TABLET PO SCH ×2 (09:14→16:13)
[2021-08-27 16:00] VITALS: BP 120/73
[2021-08-28 08:15] VITALS: BP 136/76
[2021-08-28] MEDS: RisperiDONE 3 MG TABLET PO SCH ×2 (08:37→16:18)
[2021-08-28] MEDS: METOPROLOL TARTRATE 25 MG TABLET PO SCH ×2 (08:38→16:18)
[2021-08-28] MEDS: METHIMAZOLE 5 MG TABLET PO SCH ×3 (08:38→16:18)
[2021-08-28 17:52] VITALS: BP 128/78
[2021-08-29] MEDS: METHIMAZOLE 5 MG TABLET PO SCH ×3 (08:57→16:37)
[2021-08-29] MEDS: METOPROLOL TARTRATE 25 MG TABLET PO SCH ×2 (08:58→16:37)
[2021-08-29] MEDS: RisperiDONE 3 MG TABLET PO SCH ×2 (08:58→16:37)
[2021-08-29 09:57] VITALS: BP 142/93
[2021-08-29 16:40] VITALS: BP 103/53
[2021-08-30] MEDS: RisperiDONE 3 MG TABLET PO SCH ×2 (08:37→16:57)
[2021-08-30] MEDS: METHIMAZOLE 5 MG TABLET PO SCH ×3 (08:37→16:56)
[2021-08-30] MEDS: METOPROLOL TARTRATE 25 MG TABLET PO SCH ×2 (08:38→16:57)
[2021-08-30 08:53] VITALS: BP 147/90
[2021-08-30 16:22] VITALS: BP 103/64
[2021-08-30] MEDS: OLANZapine 5 MG RAPDIS TABLET PO PRN (16:57)
[2021-08-31 08:18] VITALS: BP 115/73
[2021-08-31] MEDS: METHIMAZOLE 5 MG TABLET PO SCH ×3 (09:03→17:21)
[2021-08-31] MEDS: RisperiDONE 3 MG TABLET PO SCH ×2 (09:03→17:21)
[2021-08-31] MEDS: METOPROLOL TARTRATE 25 MG TABLET PO SCH ×2 (09:03→17:21)
[2021-08-31 16:13] VITALS: BP 108/58
[2021-08-31] MEDS: OLANZapine 5 MG RAPDIS TABLET PO PRN (17:21)
[2021-09-01 08:34] VITALS: BP 136/70
[2021-09-01] MEDS: METHIMAZOLE 5 MG TABLET PO SCH ×3 (08:51→16:33)
[2021-09-01] MEDS: RisperiDONE 3 MG TABLET PO SCH ×2 (08:51→16:33)
[2021-09-01] MEDS: METOPROLOL TARTRATE 25 MG TABLET PO SCH ×2 (08:52→16:34)
[2021-09-01 16:28] VITALS: BP 149/89
[2021-09-02 08:39] VITALS: BP 135/94
[2021-09-02] MEDS: RisperiDONE 3 MG TABLET PO SCH ×2 (08:43→16:08)
[2021-09-02] MEDS: METHIMAZOLE 5 MG TABLET PO SCH ×3 (08:44→16:07)
[2021-09-02] MEDS: METOPROLOL TARTRATE 25 MG TABLET PO SCH ×2 (08:44→16:08)
[2021-09-02 11:34] LABS: COVID AG,FIA SOURCE NASOPHARYNGEAL
[2021-09-02 16:00] VITALS: BP 113/73
[2021-09-03 08:00] VITALS: BP 132/84
[2021-09-03] MEDS: METHIMAZOLE 5 MG TABLET PO SCH ×3 (08:07→16:17)
[2021-09-03] MEDS: METOPROLOL TARTRATE 25 MG TABLET PO SCH ×2 (08:08→16:17)
[2021-09-03] MEDS: RisperiDONE 3 MG TABLET PO SCH ×2 (08:08→16:18)
[2021-09-03 16:00] VITALS: BP 116/72
[2021-09-04 08:00] VITALS: BP 134/90
[2021-09-04] MEDS: RisperiDONE 3 MG TABLET PO SCH ×2 (08:46→16:37)
[2021-09-04] MEDS: METHIMAZOLE 5 MG TABLET PO SCH ×3 (08:46→16:37)
[2021-09-04] MEDS: METOPROLOL TARTRATE 25 MG TABLET PO SCH ×2 (08:46→16:37)
[2021-09-04 16:28] VITALS: BP 127/76
[2021-09-05 08:00] VITALS: BP 114/60
[2021-09-05] MEDS: METOPROLOL TARTRATE 25 MG TABLET PO SCH ×2 (09:50→16:22)
[2021-09-05] MEDS: METHIMAZOLE 5 MG TABLET PO SCH ×3 (09:50→16:22)
[2021-09-05] MEDS: RisperiDONE 3 MG TABLET PO SCH ×2 (09:50→16:22)
[2021-09-05 17:18] VITALS: BP 106/67
[2021-09-06] MEDS: RisperiDONE 3 MG TABLET PO SCH ×2 (09:33→16:30)
[2021-09-06] MEDS: METHIMAZOLE 5 MG TABLET PO SCH ×3 (09:34→16:30)
[2021-09-06] MEDS: METOPROLOL TARTRATE 25 MG TABLET PO SCH ×2 (09:34→16:35)
[2021-09-06 09:59] VITALS: BP 135/85
[2021-09-06 16:13] VITALS: BP 104/73
[2021-09-07] MEDS: RisperiDONE 3 MG TABLET PO SCH ×2 (09:10→16:07)
[2021-09-07] MEDS: METOPROLOL TARTRATE 25 MG TABLET PO SCH ×2 (09:10→16:07)
[2021-09-07] MEDS: METHIMAZOLE 5 MG TABLET PO SCH ×3 (09:10→16:07)
[2021-09-07 10:20] VITALS: BP 111/76
[2021-09-07 16:09] VITALS: BP 138/71
[2021-09-08 08:35] VITALS: BP 150/93
[2021-09-08] MEDS: RisperiDONE 3 MG TABLET PO SCH ×2 (08:37→16:24)
[2021-09-08] MEDS: METOPROLOL TARTRATE 25 MG TABLET PO SCH ×2 (08:37→16:24)
[2021-09-08] MEDS: METHIMAZOLE 5 MG TABLET PO SCH ×3 (08:37→16:24)
[2021-09-08 16:00] VITALS: BP 102/67
[2021-09-09 08:46] VITALS: BP 136/68
[2021-09-09] MEDS: METHIMAZOLE 5 MG TABLET PO SCH ×3 (09:32→16:20)
[2021-09-09] MEDS: METOPROLOL TARTRATE 25 MG TABLET PO SCH ×2 (09:32→16:20)
[2021-09-09] MEDS: RisperiDONE 3 MG TABLET PO SCH ×2 (09:32→16:20)
[2021-09-09] MEDS: OLANZapine 5 MG RAPDIS TABLET PO PRN (16:20)
[2021-09-09 16:58] VITALS: BP 99/71
[2021-09-09 22:05] LABS: COVID AG,FIA SOURCE NASOPHARYNGEAL
[2021-09-10] MEDS: METHIMAZOLE 5 MG TABLET PO SCH ×3 (08:11→16:01)
[2021-09-10] MEDS: METOPROLOL TARTRATE 25 MG TABLET PO SCH ×2 (08:11→16:02)
[2021-09-10] MEDS: RisperiDONE 3 MG TABLET PO SCH ×2 (08:11→16:01)
[2021-09-10 08:31] VITALS: BP 106/61
[2021-09-10 17:00] VITALS: BP 126/84
[2021-09-11] MEDS: METOPROLOL TARTRATE 25 MG TABLET PO SCH ×2 (08:39→16:25)
[2021-09-11] MEDS: METHIMAZOLE 5 MG TABLET PO SCH ×3 (08:39→16:25)
[2021-09-11] MEDS: RisperiDONE 3 MG TABLET PO SCH ×2 (08:39→16:25)
[2021-09-11 09:16] VITALS: BP 115/71
[2021-09-11 16:15] VITALS: BP 115/80
[2021-09-12 09:00] VITALS: BP 140/77
[2021-09-12] MEDS: RisperiDONE 3 MG TABLET PO SCH ×2 (09:14→16:29)
[2021-09-12] MEDS: METHIMAZOLE 5 MG TABLET PO SCH ×3 (09:14→16:29)
[2021-09-12] MEDS: METOPROLOL TARTRATE 25 MG TABLET PO SCH ×2 (09:15→16:31)
[2021-09-12 16:57] VITALS: BP 119/74
[2021-09-13] MEDS: METHIMAZOLE 5 MG TABLET PO SCH ×3 (08:26→16:17)
[2021-09-13] MEDS: METOPROLOL TARTRATE 25 MG TABLET PO SCH ×2 (08:26→16:17)
[2021-09-13] MEDS: RisperiDONE 3 MG TABLET PO SCH ×2 (08:26→16:17)
[2021-09-13 09:05] VITALS: BP 133/83
[2021-09-13 16:00] VITALS: BP 140/75
[2021-09-14] MEDS: METOPROLOL TARTRATE 25 MG TABLET PO SCH ×2 (08:53→16:49)
[2021-09-14] MEDS: METHIMAZOLE 5 MG TABLET PO SCH ×3 (08:53→16:49)
[2021-09-14] MEDS: RisperiDONE 3 MG TABLET PO SCH ×2 (08:54→16:49)
[2021-09-14 10:03] VITALS: BP 142/100
[2021-09-14 16:16] VITALS: BP 107/65
[2021-09-15 08:00] VITALS: BP 137/90
[2021-09-15] MEDS: RisperiDONE 3 MG TABLET PO SCH ×2 (08:09→16:36)
[2021-09-15] MEDS: METOPROLOL TARTRATE 25 MG TABLET PO SCH ×2 (08:09→16:36)
[2021-09-15] MEDS: METHIMAZOLE 5 MG TABLET PO SCH ×3 (08:09→16:36)
[2021-09-15 17:18] VITALS: BP 114/69
[2021-09-16 08:12] VITALS: BP 148/74
[2021-09-16] MEDS: RisperiDONE 3 MG TABLET PO SCH ×2 (09:19→16:11)
[2021-09-16] MEDS: METHIMAZOLE 5 MG TABLET PO SCH ×3 (09:19→16:10)
[2021-09-16] MEDS: METOPROLOL TARTRATE 25 MG TABLET PO SCH ×2 (09:20→16:11)
[2021-09-16 09:41] LABS: COVID AG,FIA SOURCE NASAL SWAB
[2021-09-16 16:00] VITALS: BP 140/70
[2021-09-17] MEDS ORDERED: LEVOTHYROXINE SODIUM 100 MCG TABLET PO SCH (07:00)
[2021-09-17 09:04] VITALS: BP 115/82
[2021-09-17] MEDS: RisperiDONE 3 MG TABLET PO SCH ×2 (09:07→16:20)
[2021-09-17] MEDS: METHIMAZOLE 5 MG TABLET PO SCH ×3 (09:07→16:20)
[2021-09-17] MEDS: METOPROLOL TARTRATE 25 MG TABLET PO SCH ×2 (09:07→16:20)
[2021-09-17 16:34] VITALS: BP 111/78
[2021-09-18] MEDS: LEVOTHYROXINE SODIUM 125 MCG TABLET PO SCH (06:15)
[2021-09-18] MEDS ORDERED: LEVOTHYROXINE SODIUM 125 MCG TABLET PO SCH (07:00)
[2021-09-18 08:00] VITALS: BP 138/95
[2021-09-18] MEDS: RisperiDONE 3 MG TABLET PO SCH ×2 (08:32→16:22)
[2021-09-18] MEDS: METOPROLOL TARTRATE 25 MG TABLET PO SCH ×2 (08:32→16:22)
[2021-09-18] MEDS: METHIMAZOLE 5 MG TABLET PO SCH ×3 (08:33→16:21)
[2021-09-18 16:14] VITALS: BP 115/64
[2021-09-19] MEDS: LEVOTHYROXINE SODIUM 125 MCG TABLET PO SCH (06:47)
[2021-09-19 08:00] VITALS: BP 150/100
[2021-09-19] MEDS: RisperiDONE 3 MG TABLET PO SCH ×2 (09:27→16:12)
[2021-09-19] MEDS: METHIMAZOLE 5 MG TABLET PO SCH ×3 (09:27→16:12)
[2021-09-19] MEDS: METOPROLOL TARTRATE 25 MG TABLET PO SCH ×2 (09:28→16:12)
[2021-09-19 16:10] VITALS: BP 119/76
[2021-09-20] MEDS: LEVOTHYROXINE SODIUM 125 MCG TABLET PO SCH (06:27)
[2021-09-20] MEDS: RisperiDONE 3 MG TABLET PO SCH ×2 (08:11→16:14)
[2021-09-20] MEDS: METHIMAZOLE 5 MG TABLET PO SCH ×3 (08:11→16:15)
[2021-09-20] MEDS: METOPROLOL TARTRATE 25 MG TABLET PO SCH ×2 (08:11→16:15)
[2021-09-20 09:00] VITALS: BP 117/82
[2021-09-20 16:19] VITALS: BP 107/60
[2021-09-21] MEDS: LEVOTHYROXINE SODIUM 125 MCG TABLET PO SCH (06:09)
[2021-09-21] MEDS: RisperiDONE 3 MG TABLET PO SCH ×2 (08:36→16:26)
[2021-09-21] MEDS: METOPROLOL TARTRATE 25 MG TABLET PO SCH ×2 (08:36→16:27)
[2021-09-21] MEDS: METHIMAZOLE 5 MG TABLET PO SCH ×3 (08:36→16:27)
[2021-09-21 08:57] VITALS: BP 115/75
[2021-09-21 16:09] VITALS: BP 109/79
[2021-09-22] MEDS: LEVOTHYROXINE SODIUM 125 MCG TABLET PO SCH (06:25)
[2021-09-22] MEDS: METHIMAZOLE 5 MG TABLET PO SCH ×3 (08:22→16:50)
[2021-09-22] MEDS: METOPROLOL TARTRATE 25 MG TABLET PO SCH ×2 (08:22→16:50)
[2021-09-22] MEDS: RisperiDONE 3 MG TABLET PO SCH ×2 (08:23→16:50)
[2021-09-22 09:29] VITALS: BP 145/83
[2021-09-22 16:06] VITALS: BP 144/87
[2021-09-23] MEDS: LEVOTHYROXINE SODIUM 125 MCG TABLET PO SCH (06:22)
[2021-09-23 08:02] LABS: COVID AG,FIA SOURCE NASAL SWAB
[2021-09-23 09:00] VITALS: BP 146/95
[2021-09-23] MEDS: METHIMAZOLE 5 MG TABLET PO SCH ×3 (09:24→16:19)
[2021-09-23] MEDS: METOPROLOL TARTRATE 25 MG TABLET PO SCH ×2 (09:24→16:19)
[2021-09-23] MEDS: RisperiDONE 3 MG TABLET PO SCH ×2 (09:24→16:19)
[2021-09-23] MEDS ORDERED: PERMETHRIN 5% 60 GM CREAM TP ONE ×2 (12:00→17:30)
[2021-09-23 16:20] VITALS: BP 140/90
[2021-09-24] MEDS: LEVOTHYROXINE SODIUM 125 MCG TABLET PO SCH (06:42)
[2021-09-24 08:02] VITALS: BP 165/124
[2021-09-24] MEDS: METHIMAZOLE 5 MG TABLET PO SCH ×3 (08:28→16:05)
[2021-09-24] MEDS: METOPROLOL TARTRATE 25 MG TABLET PO SCH ×2 (08:28→16:05)
[2021-09-24] MEDS: RisperiDONE 3 MG TABLET PO SCH ×2 (08:28→16:05)
[2021-09-24 09:03] VITALS: BP 125/83
[2021-09-24 16:26] VITALS: BP 130/80
[2021-09-25] MEDS: LEVOTHYROXINE SODIUM 125 MCG TABLET PO SCH (06:11)
[2021-09-25 08:00] VITALS: BP 112/76
[2021-09-25] MEDS: METOPROLOL TARTRATE 25 MG TABLET PO SCH ×2 (09:10→16:25)
[2021-09-25] MEDS: METHIMAZOLE 5 MG TABLET PO SCH ×3 (09:10→16:25)
[2021-09-25] MEDS: RisperiDONE 3 MG TABLET PO SCH ×2 (09:11→16:25)
[2021-09-25 16:00] VITALS: BP 114/72
[2021-09-26] MEDS: LEVOTHYROXINE SODIUM 125 MCG TABLET PO SCH (06:44)
[2021-09-26 08:10] VITALS: BP 144/82
[2021-09-26] MEDS: METHIMAZOLE 5 MG TABLET PO SCH ×3 (10:34→16:46)
[2021-09-26] MEDS: METOPROLOL TARTRATE 25 MG TABLET PO SCH ×2 (10:34→16:46)
[2021-09-26] MEDS: RisperiDONE 3 MG TABLET PO SCH ×2 (10:34→16:46)
[2021-09-26] MEDS: OLANZapine 5 MG RAPDIS TABLET PO PRN (16:00)
[2021-09-26 16:20] VITALS: BP 116/82
[2021-09-27] MEDS: LEVOTHYROXINE SODIUM 125 MCG TABLET PO SCH (07:01)
[2021-09-27] MEDS: RisperiDONE 3 MG TABLET PO SCH ×2 (08:24→16:27)
[2021-09-27] MEDS: METOPROLOL TARTRATE 25 MG TABLET PO SCH ×2 (08:24→16:27)
[2021-09-27] MEDS: METHIMAZOLE 5 MG TABLET PO SCH ×3 (08:24→16:27)
[2021-09-27 09:00] VITALS: BP 142/84
[2021-09-27 16:11] VITALS: BP 117/77
[2021-09-28] MEDS: LEVOTHYROXINE SODIUM 125 MCG TABLET PO SCH (06:53)
[2021-09-28] MEDS: METHIMAZOLE 5 MG TABLET PO SCH ×3 (08:24→16:03)
[2021-09-28] MEDS: RisperiDONE 3 MG TABLET PO SCH ×2 (08:24→16:03)
[2021-09-28] MEDS: METOPROLOL TARTRATE 25 MG TABLET PO SCH ×2 (08:24→16:02)
[2021-09-28 08:32] VITALS: BP 128/81
[2021-09-28 16:25] VITALS: BP 130/89
[2021-09-29] MEDS: LEVOTHYROXINE SODIUM 125 MCG TABLET PO SCH (06:57)
[2021-09-29 08:10] VITALS: BP 138/87
[2021-09-29] MEDS: RisperiDONE 3 MG TABLET PO SCH ×2 (09:03→16:55)
[2021-09-29] MEDS: METHIMAZOLE 5 MG TABLET PO SCH ×3 (09:04→16:55)
[2021-09-29] MEDS: METOPROLOL TARTRATE 25 MG TABLET PO SCH ×2 (09:04→16:55)
[2021-09-29 16:25] VITALS: BP 148/82
[2021-09-29] MEDS: OLANZapine 5 MG RAPDIS TABLET PO PRN (16:55)
[2021-09-30] MEDS ORDERED: PERMETHRIN 5% 60 GM CREAM TP ONE (05:00)
[2021-09-30] MEDS: LEVOTHYROXINE SODIUM 125 MCG TABLET PO SCH (06:16)
[2021-09-30 08:01] LABS: COVID AG,FIA SOURCE NASAL SWAB
[2021-09-30 08:45] VITALS: BP 124/87
[2021-09-30] MEDS: RisperiDONE 3 MG TABLET PO SCH ×2 (10:00→16:04)
[2021-09-30] MEDS: METOPROLOL TARTRATE 25 MG TABLET PO SCH ×2 (10:00→16:04)
[2021-09-30] MEDS: METHIMAZOLE 5 MG TABLET PO SCH ×3 (10:01→16:03)
[2021-09-30 16:00] VITALS: BP 131/78
[2021-10-01] MEDS: LEVOTHYROXINE SODIUM 125 MCG TABLET PO SCH (06:37)
[2021-10-01 08:39] VITALS: BP 100/67
[2021-10-01] MEDS: METHIMAZOLE 5 MG TABLET PO SCH ×3 (09:27→16:00)
[2021-10-01] MEDS: RisperiDONE 3 MG TABLET PO SCH ×2 (09:28→16:00)
[2021-10-01] MEDS: METOPROLOL TARTRATE 25 MG TABLET PO SCH ×2 (09:28→16:00)
[2021-10-01] MEDS ORDERED: PERMETHRIN 5% 60 GM CREAM TP ONE (09:30)
[2021-10-01 16:00] VITALS: BP 117/63
[2021-10-02] MEDS: LEVOTHYROXINE SODIUM 125 MCG TABLET PO SCH (06:33)
[2021-10-02 08:23] VITALS: BP 138/88
[2021-10-02] MEDS: METOPROLOL TARTRATE 25 MG TABLET PO SCH ×2 (08:40→16:29)
[2021-10-02] MEDS: RisperiDONE 3 MG TABLET PO SCH ×2 (08:40→16:29)
[2021-10-02] MEDS: METHIMAZOLE 5 MG TABLET PO SCH ×3 (08:40→16:29)
[2021-10-02 16:12] VITALS: BP 130/78
[2021-10-03] MEDS: LEVOTHYROXINE SODIUM 125 MCG TABLET PO SCH (06:56)
[2021-10-03] MEDS: RisperiDONE 3 MG TABLET PO SCH ×2 (08:28→16:52)
[2021-10-03] MEDS: METHIMAZOLE 5 MG TABLET PO SCH ×3 (08:28→16:52)
[2021-10-03] MEDS: METOPROLOL TARTRATE 25 MG TABLET PO SCH ×2 (08:28→16:52)
[2021-10-03 08:46] VITALS: BP 131/77
[2021-10-03 16:00] VITALS: BP 143/84
[2021-10-04] MEDS: LEVOTHYROXINE SODIUM 125 MCG TABLET PO SCH (06:58)
[2021-10-04] MEDS: METHIMAZOLE 5 MG TABLET PO SCH ×3 (09:20→16:35)
[2021-10-04] MEDS: METOPROLOL TARTRATE 25 MG TABLET PO SCH ×2 (09:20→16:35)
[2021-10-04] MEDS: RisperiDONE 3 MG TABLET PO SCH ×2 (09:20→16:35)
[2021-10-04 16:31] VITALS: BP 108/59
[2021-10-05] MEDS: LEVOTHYROXINE SODIUM 125 MCG TABLET PO SCH (06:38)
[2021-10-05] MEDS: RisperiDONE 3 MG TABLET PO SCH ×2 (10:11→16:24)
[2021-10-05] MEDS: METHIMAZOLE 5 MG TABLET PO SCH ×3 (10:12→16:24)
[2021-10-05] MEDS: METOPROLOL TARTRATE 25 MG TABLET PO SCH ×2 (10:14→16:24)
[2021-10-05 16:00] VITALS: BP 127/60
[2021-10-06] MEDS: LEVOTHYROXINE SODIUM 125 MCG TABLET PO SCH (06:38)
[2021-10-06] MEDS: METHIMAZOLE 5 MG TABLET PO SCH ×3 (09:07→16:03)
[2021-10-06] MEDS: RisperiDONE 3 MG TABLET PO SCH ×2 (09:07→16:03)
[2021-10-06] MEDS: METOPROLOL TARTRATE 25 MG TABLET PO SCH ×2 (09:07→16:02)
[2021-10-06 09:31] VITALS: BP 163/87
[2021-10-06 16:41] VITALS: BP 121/81
[2021-10-07] MEDS ORDERED: PERMETHRIN 5% 60 GM CREAM TP ONE ×3 (07:00→21:00)
[2021-10-07] MEDS: LEVOTHYROXINE SODIUM 125 MCG TABLET PO SCH (07:01)
[2021-10-07] MEDS: METOPROLOL TARTRATE 25 MG TABLET PO SCH ×2 (09:38→16:19)
[2021-10-07] MEDS: RisperiDONE 3 MG TABLET PO SCH ×2 (09:38→16:19)
[2021-10-07] MEDS: METHIMAZOLE 5 MG TABLET PO SCH ×3 (09:38→16:19)
[2021-10-07 09:58] VITALS: BP 146/78
[2021-10-07 13:52] LABS: COVID AG,FIA SOURCE NASOPHARYNGEAL
[2021-10-08] MEDS: LEVOTHYROXINE SODIUM 125 MCG TABLET PO SCH (06:51)
[2021-10-08 08:40] VITALS: BP 114/81
[2021-10-08] MEDS: RisperiDONE 3 MG TABLET PO SCH ×2 (08:52→16:18)
[2021-10-08] MEDS: METOPROLOL TARTRATE 25 MG TABLET PO SCH ×2 (08:52→16:18)
[2021-10-08] MEDS: METHIMAZOLE 5 MG TABLET PO SCH ×3 (08:53→16:18)
[2021-10-08 16:00] VITALS: BP 115/79
[2021-10-08 16:06] VITALS: BP 115/79
[2021-10-09] MEDS: LEVOTHYROXINE SODIUM 125 MCG TABLET PO SCH (06:47)
[2021-10-09] MEDS: METHIMAZOLE 5 MG TABLET PO SCH ×3 (08:30→16:48)
[2021-10-09] MEDS: METOPROLOL TARTRATE 25 MG TABLET PO SCH ×2 (08:31→16:48)
[2021-10-09] MEDS: RisperiDONE 3 MG TABLET PO SCH ×2 (08:33→16:48)
[2021-10-09 09:43] VITALS: BP 125/84
[2021-10-09 16:29] VITALS: BP 128/79
[2021-10-10] MEDS: LEVOTHYROXINE SODIUM 125 MCG TABLET PO SCH (06:12)
[2021-10-10] MEDS: METHIMAZOLE 5 MG TABLET PO SCH ×3 (08:27→16:13)
[2021-10-10] MEDS: RisperiDONE 3 MG TABLET PO SCH ×2 (08:27→16:18)
[2021-10-10] MEDS: METOPROLOL TARTRATE 25 MG TABLET PO SCH ×2 (08:27→16:18)
[2021-10-10 09:36] VITALS: BP 128/84
[2021-10-10 16:19] VITALS: BP 90/65
[2021-10-11] MEDS: LEVOTHYROXINE SODIUM 125 MCG TABLET PO SCH (06:37)
[2021-10-11 08:35] VITALS: BP 129/69
[2021-10-11] MEDS: METHIMAZOLE 5 MG TABLET PO SCH ×3 (08:48→16:34)
[2021-10-11] MEDS: METOPROLOL TARTRATE 25 MG TABLET PO SCH ×2 (08:49→16:34)
[2021-10-11] MEDS: RisperiDONE 3 MG TABLET PO SCH ×2 (08:49→16:34)
[2021-10-11 16:19] VITALS: BP 111/85
[2021-10-12] MEDS: LEVOTHYROXINE SODIUM 125 MCG TABLET PO SCH (06:53)
[2021-10-12] MEDS: METHIMAZOLE 5 MG TABLET PO SCH ×3 (08:25→16:17)
[2021-10-12] MEDS: RisperiDONE 3 MG TABLET PO SCH ×2 (08:25→16:18)
[2021-10-12] MEDS: METOPROLOL TARTRATE 25 MG TABLET PO SCH ×2 (08:25→16:17)
[2021-10-12 08:30] VITALS: BP 102/76
[2021-10-12 16:22] VITALS: BP 99/68
[2021-10-13] MEDS: LEVOTHYROXINE SODIUM 125 MCG TABLET PO SCH (06:35)
[2021-10-13 08:24] VITALS: BP 133/74
[2021-10-13] MEDS: METHIMAZOLE 5 MG TABLET PO SCH ×3 (08:37→16:47)
[2021-10-13] MEDS: METOPROLOL TARTRATE 25 MG TABLET PO SCH ×2 (08:37→16:48)
[2021-10-13] MEDS: RisperiDONE 3 MG TABLET PO SCH ×2 (08:37→16:47)
[2021-10-13 16:00] VITALS: BP 112/76
[2021-10-14] MEDS: LEVOTHYROXINE SODIUM 125 MCG TABLET PO SCH (06:42)
[2021-10-14 08:01] LABS: COVID AG,FIA SOURCE NASAL SWAB
[2021-10-14 08:55] VITALS: BP 138/87
[2021-10-14] MEDS: METHIMAZOLE 5 MG TABLET PO SCH ×3 (09:03→16:04)
[2021-10-14] MEDS: METOPROLOL TARTRATE 25 MG TABLET PO SCH ×2 (09:03→16:03)
[2021-10-14] MEDS: RisperiDONE 3 MG TABLET PO SCH ×2 (09:03→16:03)
[2021-10-14 16:28] VITALS: BP 125/80
[2021-10-15] MEDS: LEVOTHYROXINE SODIUM 125 MCG TABLET PO SCH (06:48)
[2021-10-15] MEDS: METHIMAZOLE 5 MG TABLET PO SCH ×3 (08:58→16:02)
[2021-10-15] MEDS: METOPROLOL TARTRATE 25 MG TABLET PO SCH ×2 (08:58→16:02)
[2021-10-15] MEDS: RisperiDONE 3 MG TABLET PO SCH ×2 (08:58→16:02)
[2021-10-15 10:04] LABS: BASOPHILS % (AUTO) 0.7 % (0.0-2.0); EOSINOPHILS % (AUTO) 5.4 % (1.0-6.0); HEMATOCRIT 41.2 % (41-53); HEMOGLOBIN 13.7 g/dL (13.5-17.5); LYMPHOCYTES # (AUTO) 1.7 K/uL (1.0-4.8); LYMPHOCYTES % (AUTO) 36.1 % (22.0-44.0); MEAN CORPUSCULAR HEMOGLOBIN 27.3 pg (26.0-34.0); MEAN CORPUSCULAR HGB CONC 33.2 G/dL (31.0-37.0); MEAN CORPUSCULAR VOLUME 82 fL (80-100); MONOCYTES # (AUTO) 0.3 K/uL (0.1-1.0); MONOCYTES % (AUTO) 6.9 % (2.0-9.0); NEUTROPHILS # (AUTO) 2.4 K/uL (1.8-7.7); NEUTROPHILS % (AUTO) 50.9 % (40.0-70.0); PLATELET COUNT (AUTO) 320 K/uL (150-450); RED CELL DISTRIBUTION WIDTH 14.4 % (11.5-14.5)
[2021-10-15 10:27] LABS: ALANINE AMINOTRANSFERASE 15 U/L (12-78); ALBUMIN 3.4 g/dL (3.4-5.0); ALKALINE PHOSPHATASE 86 U/L (46-116); ANION GAP 10 mmol/L (8-16); ASPARTATE AMINOTRANSFERASE 10 U/L (15-37); BILIRUBIN,TOTAL 0.5 mg/dL (0.1-1.0); CALCIUM, TOTAL 8.6 mg/dL (8.8-10.5); CARBON DIOXIDE 31 mmol/L (22-29); CHLORIDE 103 mmol/L (98-107); CHOL/HDL RATIO 5.1 (4.2-7.3); CHOLESTEROL 154 mg/dL (131-200); CREATININE 1.37 mg/dL (0.60-1.30); GLUCOSE,RANDOM 95 mg/dL (70-110); HDL CHOLESTEROL 30 mg/dL (40-60); LDL CHOL (CALC.) 112 mg/dL (0-130); PHOSPHORUS 3.2 mg/dL (2.5-4.9); SODIUM SERUM 144 mmol/L (136-145); THYROID STIMULATING HORMONE 0.76 uIU/mL (0.36-3.74); TOTAL PROTEIN, SERUM 8.2 g/dL (6.4-8.2); TRIGLYCERIDES 62 mg/dL (15-150); UREA NITROGEN, BLOOD 13 mg/dL (7-18)
[2021-10-15 10:38] LABS: GLOMERULAR FILTR. RATE CALC > 60 mL/min (>60)
[2021-10-15 16:05] VITALS: BP 131/78
[2021-10-16] MEDS: LEVOTHYROXINE SODIUM 125 MCG TABLET PO SCH (06:40)
[2021-10-16] MEDS: RisperiDONE 3 MG TABLET PO SCH ×2 (08:17→17:45)
[2021-10-16] MEDS: METOPROLOL TARTRATE 25 MG TABLET PO SCH ×2 (08:17→17:45)
[2021-10-16] MEDS: METHIMAZOLE 5 MG TABLET PO SCH ×3 (08:17→17:44)
[2021-10-16 16:14] VITALS: BP 128/71
[2021-10-16] MEDS: OLANZapine 5 MG RAPDIS TABLET PO PRN (17:00)
[2021-10-17] MEDS: LEVOTHYROXINE SODIUM 125 MCG TABLET PO SCH (06:46)
[2021-10-17 08:00] VITALS: BP 118/82
[2021-10-17] MEDS: METHIMAZOLE 5 MG TABLET PO SCH ×3 (08:36→16:36)
[2021-10-17] MEDS: RisperiDONE 3 MG TABLET PO SCH ×2 (08:36→16:36)
[2021-10-17] MEDS: METOPROLOL TARTRATE 25 MG TABLET PO SCH ×2 (08:37→16:36)
[2021-10-17 16:00] VITALS: BP 107/70
[2021-10-18] MEDS: LEVOTHYROXINE SODIUM 125 MCG TABLET PO SCH (06:26)
[2021-10-18] MEDS: METHIMAZOLE 5 MG TABLET PO SCH ×3 (08:59→16:29)
[2021-10-18] MEDS: RisperiDONE 3 MG TABLET PO SCH ×2 (08:59→16:29)
[2021-10-18] MEDS: METOPROLOL TARTRATE 25 MG TABLET PO SCH ×2 (09:00→16:29)
[2021-10-18 09:28] VITALS: BP 123/79
[2021-10-18 16:23] VITALS: BP 123/78
[2021-10-19] MEDS: LEVOTHYROXINE SODIUM 125 MCG TABLET PO SCH (06:48)
[2021-10-19] MEDS: METHIMAZOLE 5 MG TABLET PO SCH ×3 (07:56→16:08)
[2021-10-19] MEDS: RisperiDONE 3 MG TABLET PO SCH ×2 (07:56→16:08)
[2021-10-19] MEDS: METOPROLOL TARTRATE 25 MG TABLET PO SCH ×2 (08:57→17:00)
[2021-10-19 09:09] VITALS: BP 97/61
[2021-10-19 16:26] VITALS: BP 100/60
[2021-10-20] MEDS: LEVOTHYROXINE SODIUM 125 MCG TABLET PO SCH (06:41)
[2021-10-20] MEDS: RisperiDONE 3 MG TABLET PO SCH (08:41)
[2021-10-20] MEDS: METOPROLOL TARTRATE 25 MG TABLET PO SCH (08:41)
[2021-10-20] MEDS: METHIMAZOLE 5 MG TABLET PO SCH (08:41)
[2021-10-20] MEDS ORDERED: LEVO125 PO (09:24)
[2021-10-20] MEDS ORDERED: METO25 PO (09:25)
[2021-10-20] MEDS ORDERED: METH-386 PO (09:25)
[2021-10-20] MEDS ORDERED: RISP3TAB35 PO (09:26)
[2021-10-20 09:32] VITALS: BP 121/72
== END 2021-10-20 11:35 | disposition home or self-care (01) | DRG 750 ==
LOC: EMS 21:33 → 3EI 08-07 00:01
PROVIDERS: ADMIT Psychiatry & Neurology Psychiatry; ATTEND Psychiatry & Neurology Psychiatry
DX: F20.0 Paranoid schizophrenia (principal); R45.851 Suicidal ideations; D57.1 Sickle-cell disease without crisis; E87.1 Hypo-osmolality and hyponatremia; B85.0 Pediculosis due to Pediculus humanus capitis; F17.210 Nicotine dependence, cigarettes, uncomplicated; E03.9 Hypothyroidism, unspecified; G47.00 Insomnia, unspecified; K59.00 Constipation, unspecified; F41.9 Anxiety disorder, unspecified; I10 Essential (primary) hypertension; J44.9 Chronic obstructive pulmonary disease, unspecified; F32.A Depression, unspecified; Z20.822 Contact with and (suspected) exposure to COVID-19; F19.10 Other psychoactive substance abuse, uncomplicated
CPT/HCPCS: 80053; 80061; 81003; 83735; 84100; 84132; 84295; 84443; 85025; 86361; 87389; 90686; 99285; G0480; J3535

== ENCOUNTER 2021-10-30 13:14 | Emergency (ER) | payer MEDICAID, OTHER ==
[~2021-10-30] VITALS: Ht 172.7 cm; Wt 84.1 kg
[~2021-10-30 13:14] MED LIST changes: +LEVO125 PO; -RISP0.5T61 PO; +RISP3TAB35 PO
[2021-10-30 14:40] LABS: BASOPHILS % (AUTO) 0.8 % (0.0-2.0); EOSINOPHILS % (AUTO) 0.2 % (1.0-6.0); HEMATOCRIT 40.3 % (41-53); HEMOGLOBIN 13.3 g/dL (13.5-17.5); LYMPHOCYTES # (AUTO) 1.4 K/uL (1.0-4.8); LYMPHOCYTES % (AUTO) 30.4 % (22.0-44.0); MEAN CORPUSCULAR HEMOGLOBIN 26.8 pg (26.0-34.0); MEAN CORPUSCULAR VOLUME 81 fL (80-100); MONOCYTES # (AUTO) 0.5 K/uL (0.1-1.0); MONOCYTES % (AUTO) 11.9 % (2.0-9.0); NEUTROPHILS # (AUTO) 2.5 K/uL (1.8-7.7); NEUTROPHILS % (AUTO) 56.7 % (40.0-70.0); PLATELET COUNT (AUTO) 242 K/uL (150-450); RED BLOOD CELL COUNT(AUTO) 4.96 MIL/uL (4.50-5.90)
[2021-10-30 14:49] LABS: ANION GAP 10 mmol/L (8-16); CALCIUM, TOTAL 7.8 mg/dL (8.8-10.5); CARBON DIOXIDE 24 mmol/L (22-29); CHLORIDE 106 mmol/L (98-107); CREATININE 1.21 mg/dL (0.60-1.30); GLOMERULAR FILTR. RATE CALC > 60 mL/min (>60); GLUCOSE,RANDOM 89 mg/dL (70-110); POTASSIUM 3.5 mmol/L (3.5-5.1); SODIUM SERUM 140 mmol/L (136-145); UREA NITROGEN, BLOOD 14 mg/dL (7-18)
[2021-10-30 14:55] LABS: ALANINE AMINOTRANSFERASE 19 U/L (12-78); ALBUMIN 3.2 g/dL (3.4-5.0); ALKALINE PHOSPHATASE 73 U/L (46-116); ASPARTATE AMINOTRANSFERASE 19 U/L (15-37); BILIRUBIN,TOTAL 0.2 mg/dL (0.1-1.0); TOTAL PROTEIN, SERUM 7.5 g/dL (6.4-8.2)
[2021-10-30 15:20] LABS: FREE T4 (FREE THYROXINE) 0.79 ng/dL (0.76-1.46); THYROID STIMULATING HORMONE 2.63 uIU/mL (0.36-3.74)
[2021-10-30 15:59] LABS: COVID AG,FIA SOURCE NASOPHARYNGEAL
[2021-10-30 18:53] VITALS: BP 131/69
== END 2021-10-31 01:36 | disposition home or self-care (01) ==
LOC: EMS 13:19
DX: U07.1 COVID-19 (principal); F20.9 Schizophrenia, unspecified; F31.9 Bipolar disorder, unspecified; F12.90 Cannabis use, unspecified, uncomplicated; F15.90 Other stimulant use, unspecified, uncomplicated; F17.210 Nicotine dependence, cigarettes, uncomplicated; Z79.899 Other long term (current) drug therapy
CPT/HCPCS: 36415; 80053; 84439; 84443; 85025; 87426; 99284; G0480

== ENCOUNTER 2022-06-03 12:37 | Emergency (ER) | payer OTHER ==
[~2022-06-03] VITALS: Ht 172.7 cm; Wt 84.1 kg
[2022-06-03] MEDS ORDERED: HALOPERIDOL 5 MG TABLET PO ONE (14:45)
[2022-06-03 14:58] LABS: BASOPHILS % (AUTO) 0.8 % (0.0-2.0); HEMATOCRIT 43.2 % (41-53); HEMOGLOBIN 14.3 g/dL (13.5-17.5); LYMPHOCYTES # (AUTO) 1.8 K/uL (1.0-4.8); MEAN CORPUSCULAR HEMOGLOBIN 26.6 pg (26.0-34.0); MEAN CORPUSCULAR HGB CONC 33.2 G/dL (31.0-37.0); MEAN CORPUSCULAR VOLUME 80 fL (80-100); MONOCYTES # (AUTO) 0.4 K/uL (0.1-1.0); MONOCYTES % (AUTO) 6.4 % (2.0-9.0); NEUTROPHILS # (AUTO) 4.4 K/uL (1.8-7.7); NEUTROPHILS % (AUTO) 64.8 % (40.0-70.0); PLATELET COUNT (AUTO) 286 K/uL (150-450); RED CELL DISTRIBUTION WIDTH 15.5 % (11.5-14.5)
[2022-06-03 15:07] LABS: ANION GAP 12 mmol/L (8-16); CALCIUM, TOTAL 9.1 mg/dL (8.8-10.5); CARBON DIOXIDE 26 mmol/L (22-29); CHLORIDE 98 mmol/L (98-107); CREATININE 1.33 mg/dL (0.60-1.30); GLUCOSE,RANDOM 81 mg/dL (70-110); POTASSIUM 3.8 mmol/L (3.5-5.1); SODIUM SERUM 136 mmol/L (136-145); UREA NITROGEN, BLOOD 12 mg/dL (7-18)
[2022-06-03 15:13] LABS: GLOMERULAR FILTR. RATE CALC > 60 mL/min (>60)
[2022-06-03 15:14] LABS: ALANINE AMINOTRANSFERASE 50 U/L (12-78); ALBUMIN 3.8 g/dL (3.4-5.0); ALKALINE PHOSPHATASE 66 U/L (46-116); ASPARTATE AMINOTRANSFERASE 85 U/L (15-37); BILIRUBIN,TOTAL 0.9 mg/dL (0.1-1.0); TOTAL PROTEIN, SERUM 8.5 g/dL (6.4-8.2)
[2022-06-03 18:35] LABS: COVID AG,FIA SOURCE NASOPHARYNGEAL
[2022-06-03 19:32] VITALS: BP 120/90
== END 2022-06-03 19:40 | disposition home or self-care (01) ==
LOC: EMS 12:37
DX: F20.9 Schizophrenia, unspecified (principal); F31.9 Bipolar disorder, unspecified; E87.1 Hypo-osmolality and hyponatremia; F17.210 Nicotine dependence, cigarettes, uncomplicated; F12.90 Cannabis use, unspecified, uncomplicated; F15.90 Other stimulant use, unspecified, uncomplicated; Z87.448 Personal history of other diseases of urinary system; Z87.898 Personal history of other specified conditions; Z98.890 Other specified postprocedural states; Z20.822 Contact with and (suspected) exposure to COVID-19
CPT/HCPCS: 99285; 87426; 80053; 85025; 36415; G0480; 99284

== ENCOUNTER 2022-10-23 18:11 | Emergency (ER) | payer OTHER ==
[~2022-10-23] VITALS: Ht 172.7 cm; Wt 79.5 kg
[2022-10-23 18:48] VITALS: BP 134/98
[2022-10-23 19:25] LABS: BASOPHILS % (AUTO) 0.6 % (0.0-2.0); EOSINOPHILS % (AUTO) 1.2 % (1.0-6.0); HEMATOCRIT 40.3 % (41-53); HEMOGLOBIN 13.2 g/dL (13.5-17.5); LYMPHOCYTES # (AUTO) 1.3 K/uL (1.0-4.8); LYMPHOCYTES % (AUTO) 17.1 % (22.0-44.0); MEAN CORPUSCULAR HEMOGLOBIN 27.7 pg (26.0-34.0); MEAN CORPUSCULAR HGB CONC 32.7 G/dL (31.0-37.0); MEAN CORPUSCULAR VOLUME 85 fL (80-100); MONOCYTES # (AUTO) 0.3 K/uL (0.1-1.0); MONOCYTES % (AUTO) 3.8 % (2.0-9.0); NEUTROPHILS # (AUTO) 5.7 K/uL (1.8-7.7); NEUTROPHILS % (AUTO) 77.3 % (40.0-70.0); PLATELET COUNT (AUTO) 271 K/uL (150-450); RED BLOOD CELL COUNT(AUTO) 4.76 MIL/uL (4.50-5.90); RED CELL DISTRIBUTION WIDTH 16.2 % (11.5-14.5)
[2022-10-23 19:32] LABS: ANION GAP 11 mmol/L (8-16); CALCIUM, TOTAL 8.6 mg/dL (8.8-10.5); CARBON DIOXIDE 26 mmol/L (22-29); CHLORIDE 109 mmol/L (98-107); CREATININE 1.39 mg/dL (0.60-1.30); GLUCOSE,RANDOM 133 mg/dL (70-110); SODIUM SERUM 146 mmol/L (136-145); UREA NITROGEN, BLOOD 19 mg/dL (7-18)
[2022-10-23 19:34] LABS: GLOMERULAR FILTR. RATE CALC > 60 mL/min (>60)
[2022-10-23 19:38] LABS: ALANINE AMINOTRANSFERASE 17 U/L (12-78); ALBUMIN 3.6 g/dL (3.4-5.0); ALKALINE PHOSPHATASE 70 U/L (46-116); ASPARTATE AMINOTRANSFERASE 13 U/L (15-37); BILIRUBIN,TOTAL 0.1 mg/dL (0.1-1.0); TOTAL PROTEIN, SERUM 7.4 g/dL (6.4-8.2)
[2022-10-23 20:08] LABS: COVID AG,FIA SOURCE NASAL SWAB
[2022-10-23] MEDS ORDERED: HALOPERIDOL 5 MG TABLET PO ONE (21:45)
== END 2022-10-23 22:02 | disposition home or self-care (01) ==
LOC: EMS 18:11
DX: F20.9 Schizophrenia, unspecified (principal); F31.9 Bipolar disorder, unspecified; F17.210 Nicotine dependence, cigarettes, uncomplicated; F12.90 Cannabis use, unspecified, uncomplicated; F15.90 Other stimulant use, unspecified, uncomplicated; Z20.822 Contact with and (suspected) exposure to COVID-19
CPT/HCPCS: 99283; 87426; 80053; 85025; 36415; G0480